=== PATIENT | female | born 1950 | race Caucasian/White ===

== ENCOUNTER 2018-02-27 11:54 | Emergency (ER) | payer MEDICARE, OTHER ==
[2018-02-27 12:18] VITALS: TEMP 98.6
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
--- NOTE | 2018-02-27 13:53 | CT ---
EXAMINATION TYPE: CT brain wo con DATE OF EXAM: 02/27/2018 COMPARISON: 02/20/2011 HISTORY: headache CT DLP: 1048.4 mGycm Automated exposure control for dose reduction was used. TECHNIQUE: CT scan of the head is performed without contrast. FINDINGS: There is no acute intracranial hemorrhage or midline shift identified. There is diffuse v entricular and sulcal prominence consistent with diffuse age-related cerebral atrophy. There our few areas of low-attenuation in the periventricular white matter most consistent with chronic small vess el ischemic change. The globes are intact and the visualized sinuses are clear. 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 No transependymal edema noted. IMPRESSION: 1. No acute intracranial hemorrhage or midline shift. 2. Diffuse age-related cerebral atrophy and few foci of chronic small vessel ischemic change.
[2018-02-27 14:04] LABS: Basophils % (A) 0 %; Eosinophils # (A) 0.1 k/uL (0-0.7); Eosinophils % (A) 2 %; HCT 39.6 % (34.0-46.0); HGB 13.3 gm/dL (11.4-16.0); Lymphocytes # (A) 1.4 k/uL (1.0-4.8); Lymphocytes % (A) 22 %; MCH 32.6 pg (25.0-35.0); MCHC 33.5 g/dL (31.0-37.0); MCV 97.4 fL (80.0-100.0); Mean Platelet Volume 7.9; Monocytes # (A) 0.2 k/uL (0-1.0); Monocytes % (A) 4 %; Neutrophils # (A) 4.7 k/uL (1.3-7.7); Neutrophils % (A) 71 %; Platelet Count 166 k/uL (150-450); RBC 4.06 m/uL (3.80-5.40); RDW 12.7 % (11.5-15.5); WBC 6.5 k/uL (3.8-10.6)
[2018-02-27 14:08] LABS: Appearance,Urine Clear (Clear); Bacteria,Urine Rare /hpf; Bilirubin,Urine Negative (Negative); Blood,Urine Negative (Negative); Color,Urine Light Yellow; Glucose,Urine (UA) Negative (Negative); Hyaline Casts,Urine 11 /lpf (0-2); Ketones,Urine Negative (Negative); Leukocyte Esterase,Urine Trace (Negative); Mucus,Urine Rare /hpf; Nitrite,Urine Negative (Negative); PH, Urine 5.5 (5.0-8.0); Protein,Urine Negative (Negative); RBC,Urine 1 /hpf (0-5); Specific Gravity,Urine 1.006 (1.001-1.035); Squamous Epithelial Cell,Urine 1 /hpf (0-4); Urobilinogen,Urine <2.0 mg/dL (<2.0); WBC,Urine 1 /hpf (0-5)
[2018-02-27 14:12] LABS: Calcium 9.7 mg/dL (8.4-10.2); Magnesium 1.7 mg/dL (1.6-2.3); Total Bilirubin 0.3 mg/dL (0.2-1.3); Total Protein 6.8 g/dL (6.3-8.2)
[2018-02-27 14:26] LABS: Amphetamine Screen,Urine Not Detected (NotDetected); Barbiturate Screen,Urine Detected (NotDetected); Benzodiazepines Screen,Urine Detected (NotDetected); Cocaine Screen,Urine Not Detected (NotDetected); Methadone Screen, Urine Not Detected (NotDetected); Opiate Screen,Urine Not Detected (NotDetected); Oxycodone Screen, Urine Not Detected (NotDetected); Phencyclidine Screen,Urine Not Detected (NotDetected); Tricyclic Antidepressant,Urine Not Detected (NotDetected); Urn Cannabinoid Scrn Not Detected (NotDetected)
[2018-02-27] MEDS: LORazepam 1 MG TAB PO STA ×2 (16:29→18:18)
[2018-02-27] MEDS: ACETAMINOPHEN TAB 500 MG TAB PO STA ×2 (16:29→18:18)
[2018-02-27] MEDS ORDERED: ACETAMINOPHEN IV (For NPO) 1,000 MG in EMPTY BAG 1 BAG IVPB STA (16:59)
[2018-02-27] MEDS ORDERED: ONDANSETRON 4 MG/2 ML VIAL IVP STA (17:00)
[2018-02-27] MEDS ORDERED: LORazepam 2 MG/ML INJ IV STA (17:00)
[2018-02-27 18:16] VITALS: BP 131/79; PULSE 89; RESP 18
== END 2018-02-27 18:10 | disposition home or self-care (01) ==
LOC: EC 11:54
DX: F32.9 Major depressive disorder, single episode, unspecified (principal); R45.850 Homicidal ideations; R51 Headache; J44.9 Chronic obstructive pulmonary disease, unspecified; I10 Essential (primary) hypertension; F41.9 Anxiety disorder, unspecified; F17.200 Nicotine dependence, unspecified, uncomplicated; Z79.82 Long term (current) use of aspirin; Z79.51 Long term (current) use of inhaled steroids; Z79.899 Other long term (current) drug therapy
CPT/HCPCS: 82075; 36415; 93005; 80053; 83735; 85025; 81001; 80306; 70450; 99285; 96365; 96375 ×2; J2060; J2405; J0131

== ENCOUNTER 2018-05-21 14:55 | Emergency (ER) | payer MEDICARE ==
[2018-05-21 15:17] VITALS: BP 128/67; PULSE 77; RESP 18; TEMP 98.5
--- NOTE | 2018-05-21 15:27 | ED ---
Fall HPI - General Chief Complaint: Fall Stated Complaint: Possible broken Rib Time Seen by Provider: 05/21/18 15:21 Source: patient, RN notes reviewed Mode of arrival: ambulatory Limitations: no limitations - History of Present Illness Initial Comments: This a 68-year-old female presents emergency Department chief complaint of right-sided rib pain. Patient states she went to her sister's in [place] a week ago states that she fell when she got there. She states she tripped over a ledge falling onto her right side of her ribs. Patient states she's had pain has been persistent ever since. She denies any shortness breath but states it's painful to deep inspiration. She denies any head injury no loss conscious. Denies any abdominal pain denies any hematuria, melena, hematochezia. Patient is just concerned she may have a broken rib. - Related Data Home Medications Medication Instructions Recorded Confirmed ALPRAZolam [Xanax] 0.5 mg PO BID 02/27/18 02/27/18 Aspirin [Adult Low Dose Aspirin EC] 81 mg PO HS 02/27/18 02/27/18 Budesonide/Formoterol Fumarate 2 puff INHALATION BID 02/27/18 02/27/18 [Symbicort 80-4.5 Mcg Inhaler] Calcium Carbonate/Vitamin D3 1 cap PO DAILY 02/27/18 02/27/18 [Calcium 600-Vit D3 500 Softgel] Carvedilol [Coreg] 3.125 mg PO BID 02/27/18 02/27/18 Cholecalciferol (Vitamin D3) 2,000 unit PO DAILY 02/27/18 02/27/18 [Vitamin D3] Cyanocobalamin (Vitamin B-12) 1,000 mcg PO DAILY 02/27/18 02/27/18 [Vitamin B-12] Escitalopram [Lexapro] 10 mg PO DAILY 02/27/18 02/27/18 Isosorbide Mononitrate [Isosorbide 30 mg PO DAILY 02/27/18 02/27/18 Mononitrate ER] Montelukast [Singulair] 10 mg PO HS 02/27/18 02/27/18 Multivit/Folic Acid/Vit K1 1 tab PO DAILY 02/27/18 02/27/18 [One-A-Day Women's 50 Plus Tab] Pantoprazole Sodium [Protonix] 40 mg PO BID 02/27/18 02/27/18 Primidone [Mysoline] 100 mg PO TID 02/27/18 02/27/18 Rosuvastatin Calcium 10 mg PO HS 02/27/18 02/27/18 Spironolactone 25 mg PO DAILY 02/27/18 02/27/18 Varenicline Tartrate [Chantix 1 mg PO BID 02/27/18 02/27/18 Continuing Pack] Vitamin E (Dl,Tocopheryl Acet) 400 unit PO DAILY 02/27/18 02/27/18 [Vitamin E] amLODIPine BESYLATE/BENAZEPRIL 1 cap PO DAILY 02/27/18 02/27/18 [amLODIPine BESYLATE/BENAZEPRIL 5-40 mg] busPIRone HCL [Buspar] 7.5 mg PO BID 02/27/18 02/27/18 Allergies Allergy/AdvReac Type Severity Reaction Status Date / Time No Known Allergies Allergy Verified 05/21/18 15:17 Review of Systems ROS Statement: Those systems with pertinent positive or pertinent negative responses have been documented in the HPI. ROS Other: All systems not noted in ROS Statement are negative. Past Medical History Past Medical History: COPD, Hypertension History of Any Multi-Drug Resistant Organisms: None Reported Past Surgical History: Cholecystectomy, Hernia Repair, Orthopedic Surgery Past Psychological History: Anxiety Smoking Status: Current every day smoker Past Alcohol Use History: None Reported Past Drug Use History: Prescription Drug Abuse General Exam Limitations: no limitations General appearance: alert, in no apparent distress Head exam: Present: atraumatic, normocephalic, normal inspection Neck exam: Present: normal inspection, full ROM. Absent: tenderness, meningismus, lymphadenopathy Respiratory exam: Present: normal lung sounds bilaterally, chest wall tenderness (Moderate right anterolateral). Absent: respiratory distress, wheezes, rales, rhonchi, stridor Cardiovascular Exam: Present: regular rate, normal rhythm, normal heart sounds. Absent: systolic murmur, diastolic murmur, rubs, gallop, clicks GI/Abdominal exam: Present: soft, normal bowel sounds. Absent: distended, tenderness, guarding, rebound, rigid Back exam: Present: full ROM. Absent: tenderness, CVA tenderness (R), CVA tenderness (L), paraspinal tenderness, vertebral tenderness Neurological exam: Present: alert, oriented X3, CN II-XII intact, reflexes normal. Absent: motor sensory deficit Course Vital Signs 05/21/18 15:14 Temperature 98.5 F Pulse Rate 77 Respiratory 18 Rate Blood Pressure 128/67 O2 Sat by Pulse 98 Oximetry Medical Decision Making - Medical Decision Making 68-year-old female presented emergency department for a trip and fall. X-rays were obtained of her ribs. No acute fracture or pneumothorax noted. Patient likely has a rib contusion. Patient will be discharged return parameters were discussed. Patient abdomen is soft nontender. Disposition Clinical Impression: Fall, Contusion of rib on right side Disposition: HOME SELF-CARE Condition: Stable Instructions (If sedation given, give patient instructions): Rib Contusion (ED) Additional Instructions: Please return to the Emergency Department if symptoms worsen or any other concerns. Is patient prescribed a controlled substance at d/c from ED?: No Referrals: Kimberley Keene DO [Primary Care Provider] - 1-2 days Time of Disposition: 16:01
--- NOTE | 2018-05-21 15:53 | XR ---
EXAMINATION TYPE: XR ribs RT w pa chest xray DATE OF EXAM: 05/21/2018 CLINICAL HISTORY: Fall one week ago with subsequent right-sided chest pain TECHNIQUE: Single frontal view of the chest is obtained. Frontal and oblique views of the right ribs were also obtained. COMPARISON: 02/20/2011 FINDINGS: There is no focal air space opacity, pleural effusion, or pneumothorax seen. The cardiac silhouette size is within normal limits. The osseous structures are intact. There is mild generaliz ed osseous demineralization. No displaced acute right rib fractures or chronic healed fracture deform ities are seen. IMPRESSION: No acute cardiopulmonary process. No acute displaced right rib fracture is evident.
[2018-05-21] MEDS ORDERED: ACET/COD 300 MG/30 MG STARTER PACK 6 TAB BTL PO STA (16:03)
== END 2018-05-21 16:10 | disposition home or self-care (01) ==
LOC: EC 14:55
DX: S20.211A Contusion of right front wall of thorax, initial encounter (principal); J44.9 Chronic obstructive pulmonary disease, unspecified; I10 Essential (primary) hypertension; F41.9 Anxiety disorder, unspecified; F17.200 Nicotine dependence, unspecified, uncomplicated; Z79.82 Long term (current) use of aspirin; Z79.51 Long term (current) use of inhaled steroids; Z79.899 Other long term (current) drug therapy; W01.0XXA Fall on same level from slipping, tripping and stumbling without subsequent striking against object, initial encounter; Y92.008 Other place in unspecified non-institutional (private) residence as the place of occurrence of the external cause
CPT/HCPCS: 99283

== ENCOUNTER → 2020-12-28 | Outpatient (CLI) | payer MEDICARE ==
--- NOTE | 2020-12-30 10:28 | MM ---
Reason for exam: screening (asymptomatic). Last mammogram was performed 2 years ago. History: Patient is postmenopausal. Physical Findings: A clinical breast exam by your physician is recommended on an annual basis and results should be correlated with mammographic findings. MG 3D Screening Mammo W/Cad Bilateral CC and MLO view(s) were taken. Prior study comparison: December 28, 2018, mammogram, performed at [facility]. December 15, 2017, mammogram, performed at [facility]. Finding: There are extensive, linear, diffuse/scattered calcifications in both breasts. Focal asymmetry near skin surface laterally right breast. New finding since December 28, 2018 and December 15, 2017. ASSESSMENT: Incomplete: need additional imaging evaluation, BI-RAD 0 RECOMMENDATION: Special view mammogram of the right breast. If lesion persists on supplemental views, image directed ultrasound is recommended. [facility] will attempt to contact patient to return for supplemental views and ultrasound if indicated.
--- NOTE | 2020-12-30 13:25 | BD ---
EXAMINATION TYPE: Axial Bone Density DATE OF EXAM: 12/28/2020 COMPARISON: NONE CLINICAL HISTORY: Height: 4 FT 9 1/2 IN Weight: 138 FRAX RISK QUESTIONS: Alcohol (3 or more units per day): NO Family History (Parent hip fracture): NO Glucocorticoids (More than 3mos): NO (Ex: prednisone, prednisolone, methylprednisolone, dexamethasone, and hydrocortisone). History of Fracture in Adulthood: NO Secondary Osteoporosis: 1. Type 1 Diabetes: NO 2. Hyperthyroidism: NO 3. Menopause before 45: NO 4. Malnutrition: NO 5. Chronic liver disease: NO Rheumatoid Arthritis: NO Current Tobacco Use: YES RISK FACTORS HISTORY OF: Surgery to Spine/Hip(right/left)/Wrist (right/left): NO Family History of Osteoporosis: NO Active: YES Diet low in dairy products/other sources of calcium: NO Postmenopausal woman: AGE 53 Take estrogen and/or progesterone medications: NO Lost more than 2 inches in height since high school: NO MEDICATIONS: Additional Medications: BLOOD PRESSURE MEDS, CHOLESTEROL MEDS, CYMBA JULIO, HEART MEDS Additional History: COPD EXAM MEASUREMENTS: Bone mineral densitometry was performed using the [employer] System. Bone mineral density as measured about the Lumbar spine is: ----- L1-L4(G/cm2): 1.254 T Score Values are as follows: ----- L2: 0.7 ----- L3: 1.6 ----- L4: 1.4 ----- L1-L4: 0.6 BASELINE Bone mineral density about the R hip (g/cm2): 0.742 Bone mineral density about the L hip (g/cm2): 0.741 T Score values are as follows: -----R Neck: -2.1 -----L Neck: -2.1 -----R Total: -1.2 -----L Total: -1.5 BASELINE IMPRESSION: Osteopenia (T Score between -2.5 and -1). There is slightly increased risk of fracture and the patient may be considered for treatment. Re-Screen 2-5 years. NOTE: T-SCORE=SD OF THE YOUNG ADULT MEAN.
== END | disposition home or self-care (01) ==
LOC: RADBDWWP 15:54
PROVIDERS: ATTEND Internal Medicine
DX: Z12.31 Encounter for screening mammogram for malignant neoplasm of breast (principal); M85.80 Other specified disorders of bone density and structure, unspecified site; E55.9 Vitamin D deficiency, unspecified
CPT/HCPCS: 77063; 77067; 77080

== ENCOUNTER → 2021-01-07 | Outpatient (CLI) | payer MEDICARE ==
--- NOTE | 2021-01-07 12:48 | MM ---
Reason for exam: additional evaluation requested from abnormal screening. Last mammogram was performed less than 1 month ago. History: Patient is postmenopausal. Physical Findings: Nurse did not find any significant physical abnormalities on exam. MG 3D Work Up W/Cad RT Spot compression CC, spot compression MLO, and LM view(s) were taken of the right breast. Prior study comparison: December 28, 2020, bilateral MG 3d screening mammo w/cad. December 28, 2018, mammogram, performed at [facility]. Finding: There is a new 5 mm high density mass located 8 cm from the nipple in the outer quadrant, middle position of the right breast near skin lever in subcutaneous tissue. Focal asymmetry largely disperses on compression. New finding since December 28, 2020 and December 28, 2018. These results were verbally communicated with the patient and result sheet given to the patient on 01/07/21. ASSESSMENT: Incomplete: need additional imaging evaluation, BI-RAD 0 RECOMMENDATION: Ultrasound of the right breast.
--- NOTE | 2021-01-07 12:50 | USB ---
Reason for exam: additional evaluation requested from abnormal screening. History: Patient is postmenopausal. US Breast Workup Limited RT Right limited breast ultrasound including focal area of concern, retroareolar and axilla demonstrates a 0.3 x 0.2 x 0.2cm oval, solid calcification at 9 o'clock, a 0.4 x 0.4 x 0.1cm oval, solid calcification at 10 o'clock, a 1.3 x 0.9 x 0.6cm oval, solid, hyperechoic lipoma at 10 o'clock and duct ectasia at the posterior nipple. These results were verbally communicated with the patient and result sheet given to the patient on 01/07/21. ASSESSMENT: Probably benign, BI-RAD 3 RECOMMENDATION: Ultrasound of the right breast in 3 months.
== END | disposition home or self-care (01) ==
LOC: RADMAMWWP 10:24
PROVIDERS: ATTEND Internal Medicine
DX: R92.8 Other abnormal and inconclusive findings on diagnostic imaging of breast (principal)
CPT/HCPCS: 77065; 76642; G0279; 77061

== ENCOUNTER 2021-09-14 12:28 | Inpatient (IN) | payer BC, MEDICARE ==
[2021-09-14 13:26] LABS: Basophils % (A) 0 %; Eosinophils # (A) 0.1 k/uL (0-0.7); Eosinophils % (A) 2 %; HCT 33.8 % (34.0-46.0); Lymphocytes # (A) 0.6 k/uL (1.0-4.8); Lymphocytes % (A) 11 %; MCH 31.4 pg (25.0-35.0); MCHC 32.7 g/dL (31.0-37.0); Mean Platelet Volume 8.2; Monocytes # (A) 0.3 k/uL (0-1.0); Monocytes % (A) 5 %; Neutrophils # (A) 4.8 k/uL (1.3-7.7); Neutrophils % (A) 81 %; Platelet Count 302 k/uL (150-450); RBC 3.52 m/uL (3.80-5.40); RDW 15.7 % (11.5-15.5); WBC 5.9 k/uL (3.8-10.6)
--- NOTE | 2021-09-14 13:34 | XR ---
EXAMINATION TYPE: XR chest 2V DATE OF EXAM: 09/14/2021 COMPARISON: 05/21/2018 TECHNIQUE: PA and lateral views submitted. HISTORY: Shortness of breath FINDINGS: A diffuse interstitial pattern with bilateral lower lobe consolidation and small effusion greater on the left. Hypertrophic change of the spine. Atherosclerotic change aorta. Diffuse osteopenia. No pneu mothorax. Surgical clips upper abdomen. IMPRESSION: 1. Bilateral lower lobe infiltrate with small effusion correlate for mild CHF otherwise consider pneu monia.
[2021-09-14] MEDS ORDERED: IPRATROPIUM-ALBUTEROL 3 ML NEB INHALATION STA (13:38)
[2021-09-14 13:42] LABS: Albumin 3.3 g/dL (3.5-5.0); Calcium 8.3 mg/dL (8.4-10.2); Magnesium 1.5 mg/dL (1.6-2.3); Potassium 4.5 mmol/L (3.5-5.1); Total Bilirubin 0.3 mg/dL (0.2-1.3); Total Protein 6.4 g/dL (6.3-8.2)
--- NOTE | 2021-09-14 13:42 | ED ---
General Adult HPI - General Chief complaint: Shortness of Breath Stated complaint: LUANNE Time Seen by Provider: 09/14/21 12:29 Source: patient, EMS, RN notes reviewed Mode of arrival: ambulatory Limitations: no limitations - History of Present Illness Initial comments: This a 71-year-old female presents emergency department via EMS chief complaint of shortness of breath. Patient states over the last 3 days she's had increasing dyspnea. Patient does have history of COPD, lung cancer with lobectomy. Patient states that she's been doing well until last few days. She did have lobectomy little over one month ago. Patient denies any reported fever or chills she has a slight cough which is nonproductive. No sick contacts. Patient denies nausea which is resolved no significant headache dizziness or any focal weakness. - Related Data Home Medications Medication Instructions Recorded Confirmed ALPRAZolam [Xanax] 0.5 mg PO TID PRN 02/27/18 05/21/18 Budesonide/Formoterol Fumarate 2 puff INHALATION RT-BID 02/27/18 05/21/18 [Symbicort 80-4.5 Mcg Inhaler] Calcium Carbonate/Vitamin D3 1 cap PO DAILY 02/27/18 05/21/18 [Calcium 600-Vit D3 500 Softgel] Cholecalciferol (Vitamin D3) 2,000 unit PO DAILY 02/27/18 05/21/18 [Vitamin D3] Escitalopram [Lexapro] 10 mg PO DAILY 02/27/18 05/21/18 Isosorbide Mononitrate [Isosorbide 30 mg PO DAILY 02/27/18 05/21/18 Mononitrate ER] Montelukast [Singulair] 10 mg PO HS 02/27/18 05/21/18 Multivit/Folic Acid/Vit K1 1 tab PO DAILY 02/27/18 05/21/18 [One-A-Day Women's 50 Plus Tab] Pantoprazole Sodium [Protonix] 40 mg PO BID 02/27/18 05/21/18 Primidone [Mysoline] 100 mg PO TID 02/27/18 05/21/18 Rosuvastatin Calcium 10 mg PO HS 02/27/18 05/21/18 Spironolactone 25 mg PO DAILY 02/27/18 05/21/18 Vitamin E (Dl,Tocopheryl Acet) 400 unit PO DAILY 02/27/18 05/21/18 [Vitamin E] amLODIPine BESYLATE/BENAZEPRIL 1 cap PO DAILY 02/27/18 05/21/18 [amLODIPine BESYLATE/BENAZEPRIL 5-40 mg] Acetaminophen Tab [Tylenol Tab] 650 mg PO Q6H PRN 05/21/18 05/21/18 Albuterol Inhaler [Ventolin Hfa 1 - 2 puff INHALATION RT-Q6H PRN 05/21/18 05/21/18 Inhaler] Aspirin 325 mg PO DAILY 05/21/18 05/21/18 Cider Vinegar [Apple Cider Vinegar] 300 mg PO DAILY 05/21/18 05/21/18 DULoxetine HCL [Cymbalta] 30 mg PO BID 05/21/18 05/21/18 Fluticasone Nasal [place] [Flonase 2 spray EA NOSTRIL DAILY 05/21/18 05/21/18 Nasal [place]igg[place]] Nitroglycerin Sl Tabs [Nitrostat] 0.4 mg SUBLINGUAL Q5M PRN 05/21/18 05/21/18 [place]-3 Fatty Acids [[place]-3] 1,000 mg PO DAILY 05/21/18 05/21/18 Tiotropium 18 Mcg/Puff [Spiriva] 1 cap INHALATION RT-DAILY 05/21/18 05/21/18 Vitamin B Complex 1 cap PO DAILY 05/21/18 05/21/18 buPROPion XL [Wellbutrin Xl] 150 mg PO DAILY 05/21/18 05/21/18 carvediloL [Coreg] 6.25 mg PO BID 05/21/18 05/21/18 Allergies Allergy/AdvReac Type Severity Reaction Status Date / Time Sulfa (Sulfonamide Allergy Unknown Verified 09/14/21 12:36 Antibiotics) Review of Systems ROS Statement: Those systems with pertinent positive or pertinent negative responses have been documented in the HPI. ROS Other: All systems not noted in ROS Statement are negative. Past Medical History Past Medical History: COPD, Hypertension History of Any Multi-Drug Resistant Organisms: None Reported Past Surgical History: Cholecystectomy, Hernia Repair, Orthopedic Surgery Past Psychological History: Anxiety Past Alcohol Use History: None Reported Past Drug Use History: Prescription Drug Abuse General Exam Limitations: no limitations General appearance: alert, in no apparent distress Head exam: Present: atraumatic, normocephalic, normal inspection Eye exam: Present: normal appearance, PERRL, EOMI. Absent: scleral icterus, conjunctival injection, periorbital swelling ENT exam: Present: normal exam, normal oropharynx, mucous membranes moist Neck exam: Present: normal inspection, full ROM. Absent: tenderness, meningismus, lymphadenopathy Respiratory exam: Present: wheezes, decreased breath sounds. Absent: normal lung sounds bilaterally, respiratory distress, rales, rhonchi, stridor Cardiovascular Exam: Present: regular rate, normal rhythm, normal heart sounds. Absent: systolic murmur, diastolic murmur, rubs, gallop, clicks GI/Abdominal exam: Present: soft, normal bowel sounds. Absent: distended, tenderness, guarding, rebound, rigid Neurological exam: Present: alert Skin exam: Present: warm, dry, intact, normal color. Absent: rash Course Vital Signs 09/14/21 09/14/21 09/14/21 12:32 14:12 14:21 Temperature 97.8 F Pulse Rate 65 64 64 Respiratory 18 Rate Blood Pressure 143/72 O2 Sat by Pulse 90 L Oximetry Medical Decision Making - Medical Decision Making 71-year-old female presented for dyspnea. Patient has extensive lung history. Patient's found to have bilateral pneumonia patient was started on IV advised to consult to pulmonary. - Lab Data Result diagrams: 09/14/21 13:13 09/14/21 13:13 Lab Results 09/14/21 09/14/21 09/14/21 Range/Units 13:13 13:13 13:13 WBC 5.9 (3.8-10.6) k/uL RBC 3.52 L (3.80-5.40) m/uL Hgb 11.0 L (11.4-16.0) gm/dL Hct 33.8 L (34.0-46.0) % MCV 96.0 (80.0-100.0) fL MCH 31.4 (25.0-35.0) pg MCHC 32.7 (31.0-37.0) g/dL RDW 15.7 H (11.5-15.5) % Plt Count 302 (150-450) k/uL MPV 8.2 Neutrophils % 81 % Lymphocytes % 11 % Monocytes % 5 % Eosinophils % 2 % Basophils % 0 % Neutrophils # 4.8 (1.3-7.7) k/uL Lymphocytes # 0.6 L (1.0-4.8) k/uL Monocytes # 0.3 (0-1.0) k/uL Eosinophils # 0.1 (0-0.7) k/uL Basophils # 0.0 (0-0.2) k/uL PT 10.4 (9.0-12.0) sec INR 0.9 (<1.2) APTT 24.0 (22.0-30.0) sec Sodium 136 L (137-145) mmol/L Potassium 4.5 (3.5-5.1) mmol/L Chloride 103 (98-107) mmol/L Carbon Dioxide 22 (22-30) mmol/L Anion Gap 11 mmol/L BUN 14 (7-17) mg/dL Creatinine 0.97 (0.52-1.04) mg/dL Est GFR (CKD-EPI)AfAm 67 (>60 ml/min/1.73 sqM) Est GFR (CKD-EPI)NonAf 58 (>60 ml/min/1.73 sqM) Glucose 120 H (74-99) mg/dL Plasma Lactic Acid Selvin (0.7-2.0) mmol/L Calcium 8.3 L (8.4-10.2) mg/dL Magnesium 1.5 L (1.6-2.3) mg/dL Total Bilirubin 0.3 (0.2-1.3) mg/dL AST 24 (14-36) U/L ALT 15 (4-34) U/L Alkaline Phosphatase 168 H (38-126) U/L Troponin I (0.000-0.034) ng/mL NT-Pro-B Natriuret Pep pg/mL Total Protein 6.4 (6.3-8.2) g/dL Albumin 3.3 L (3.5-5.0) g/dL 09/14/21 09/14/21 09/14/21 Range/Units 13:13 13:13 13:13 WBC (3.8-10.6) k/uL RBC (3.80-5.40) m/uL Hgb (11.4-16.0) gm/dL Hct (34.0-46.0) % MCV (80.0-100.0) fL MCH (25.0-35.0) pg MCHC (31.0-37.0) g/dL RDW (11.5-15.5) % Plt Count (150-450) k/uL MPV Neutrophils % % Lymphocytes % % Monocytes % % Eosinophils % % Basophils % % Neutrophils # (1.3-7.7) k/uL Lymphocytes # (1.0-4.8) k/uL Monocytes # (0-1.0) k/uL Eosinophils # (0-0.7) k/uL Basophils # (0-0.2) k/uL PT (9.0-12.0) sec INR (<1.2) APTT (22.0-30.0) sec Sodium (137-145) mmol/L Potassium (3.5-5.1) mmol/L Chloride (98-107) mmol/L Carbon Dioxide (22-30) mmol/L Anion Gap mmol/L BUN (7-17) mg/dL Creatinine (0.52-1.04) mg/dL Est GFR (CKD-EPI)AfAm (>60 ml/min/1.73 sqM) Est GFR (CKD-EPI)NonAf (>60 ml/min/1.73 sqM) Glucose (74-99) mg/dL Plasma Lactic Acid Selvin 1.0 (0.7-2.0) mmol/L Calcium (8.4-10.2) mg/dL Magnesium (1.6-2.3) mg/dL Total Bilirubin (0.2-1.3) mg/dL AST (14-36) U/L ALT (4-34) U/L Alkaline Phosphatase (38-126) U/L Troponin I <0.012 (0.000-0.034) ng/mL NT-Pro-B Natriuret Pep 1750 pg/mL Total Protein (6.3-8.2) g/dL Albumin (3.5-5.0) g/dL Disposition Clinical Impression: Bilateral pneumonia, COPD (chronic obstructive pulmonary disease) Disposition: ADMITTED IP TO THIS HOSP Condition: Fair Referrals: Kimberley Keene DO [Primary Care Provider] - 1-2 days Time of Disposition: 14:25
[2021-09-14 13:45] LABS: INR 0.9 (<1.2); Prothrombin Time 10.4 sec (9.0-12.0)
[2021-09-14] MEDS ORDERED: AZITHROMYCIN 500 MG in SODIUM CHLORIDE 0.9% 250 ML IVPB STA (14:16)
[2021-09-14] MEDS ORDERED: ALBUTEROL NEBULIZED 2.5 MG/3 ML INHALATION PRN (14:25)
[2021-09-14] MEDS ORDERED: PNEUMONIA PROTOCOL UTILIZED 1 EACH MISC PO PRN (14:25)
[2021-09-14] MEDS ORDERED: IPRATROPIUM-ALBUTEROL 3 ML NEB INHALATION PRN (14:25)
[2021-09-14] MEDS ORDERED: HYDROcodone/APAP 10-325MG 1 EACH TAB PO PRN (15:28)
[2021-09-14] MEDS ORDERED: ACETAMINOPHEN TAB 325 MG TAB PO PRN (15:32)
[2021-09-14] MEDS: ALPRAZolam 0.5 MG TAB PO PRN (15:58)
[2021-09-14] MEDS: AZITHROMYCIN 500 MG in SODIUM CHLORIDE 0.9% 250 ML IVPB SCH (16:00)
--- NOTE | 2021-09-14 16:27 | P.CNPUL ---
History of Present Illness Consult date: 09/14/21 Requesting physician: Donny Tellez Reason for consult: dyspnea Chief complaint: Shortness of breath History of present illness: 71-year-old female patient with history of advanced COPD on home oxygen, history of lung cancer with recent left lower lobectomy a little over 1 month ago done at [facility] by Dr. Azul, history of hypertension, CAD with previous stenting, anxiety, nicotine dependence, currently in remission, who presented to the emergency department on 09/14/2021 with complaints of progressive dyspnea over the last 3 days. Patient denied any fever or chills, does report a slight cough, nonproductive. Denies any sick contacts. No nausea vomiting or diarrhea. No abdominal pain. Chest x-ray in the emergency department showed bilateral lower lobe infiltrate with small left pleural effusion. According to the patient, left lower lobe lung mass was discovered on routine screening CT scan of the chest done by her PCP and was a little over 5 cm in size. Patient had a thoracotomy with left lower lobectemy on 08/11/2021. Her surgeon told her that her lymph nodes were positive, and patient's cancer diagnosis was stage III at diagnosis. Patient was also seen by Dr. Mcleod in consultation for new diagnosis of lung cancer. Lab work showed a white count of 5.9, hemoglobin of 11.0, coagulation profile was within normal limits, renal profile and electrolytes were unremarkable, lactic acid is 1.0. ProBNP was 1750, troponin was less than 0.012. Patient is resting comfortably on a gurney in emergency department, she is satting 96% on 2 L, she is afebrile. He has been started on empiric antibiotics, breathing treatments, COVID-19 PCR is pending, and of note patient is not vaccinated against COVID-19. No history of known COVID 19 positive contacts, and no previous COVID-19 infection Review of Systems All systems: negative Constitutional: Denies chills, Denies fever Eyes: denies blurred vision, denies pain Ears, nose, mouth and throat: Denies headache, Denies sore throat Cardiovascular: Denies chest pain, Denies shortness of breath Respiratory: Denies cough Gastrointestinal: Denies abdominal pain, Denies diarrhea, Denies nausea, Denies vomiting Genitourinary: Denies dysuria, Denies hematuria Musculoskeletal: Denies myalgias Integumentary: Denies pruritus, Denies rash Neurological: Denies numbness, Denies weakness Psychiatric: Denies anxiety, Denies depression Endocrine: Denies fatigue, Denies weight change Past Medical History Past Medical History: COPD, Hypertension Additional Past Medical History / Comment(s): COPD, on home oxygen, left lower lobectomy on 08/11/2021 for new diagnosis of cancer, stage III at diagnosis, h ypertension, CAD with previous stenting, anxiety, former smoker History of Any Multi-Drug Resistant Organisms: None Reported Past Surgical History: Cholecystectomy, Hernia Repair, Orthopedic Surgery Past Psychological History: Anxiety Past Alcohol Use History: None Reported Past Drug Use History: Prescription Drug Abuse Medications and Allergies Home Medications Medication Instructions Recorded Confirmed Type ALPRAZolam [Xanax] 0.5 mg PO TID PRN 02/27/18 09/14/21 History Budesonide/Formoterol Fumarate 2 puff INHALATION RT-BID 02/27/18 09/14/21 History [Symbicort 80-4.5 Mcg Inhaler] Isosorbide Mononitrate [Isosorbide 30 mg PO DAILY 02/27/18 09/14/21 History Mononitrate ER] Montelukast [Singulair] 10 mg PO BID 02/27/18 09/14/21 History Pantoprazole Sodium [Protonix] 40 mg PO BID 02/27/18 09/14/21 History Primidone [Mysoline] 150 mg PO TID 02/27/18 09/14/21 History Rosuvastatin Calcium 10 mg PO HS 02/27/18 09/14/21 History Spironolactone 25 mg PO DAILY 02/27/18 09/14/21 History DULoxetine HCL [Cymbalta] 30 mg PO BID 05/21/18 09/14/21 History Amiodarone [Cordarone] 400 mg PO DAILY 09/14/21 09/14/21 History Aspirin EC [Ecotrin Low Dose] 81 mg PO DAILY 09/14/21 09/14/21 History Clopidogrel [Plavix] 75 mg PO DAILY 09/14/21 09/14/21 History HYDROcodone/APAP 10-325MG [[place] 1 - 2 tab PO Q4-6H PRN 09/14/21 09/14/21 History 10-325] amLODIPine BESYLATE/BENAZEPRIL 1 cap PO DAILY 09/14/21 09/14/21 History [Lotrel 5-20 mg Capsule] carvediloL [Coreg] 3.125 mg PO BID 09/14/21 09/14/21 History Allergies Allergy/AdvReac Type Severity Reaction Status Date / Time Sulfa (Sulfonamide Allergy Unknown Verified 09/14/21 14:46 Antibiotics) Physical Exam Vitals: Vital Signs Temp Pulse Resp BP Pulse Ox 09/14/21 15:26 68 18 142/82 96 09/14/21 14:21 64 09/14/21 14:12 64 09/14/21 12:32 97.8 F 65 18 143/72 90 L Intake and Output 09/14/21 09/14/21 09/14/21 06:59 14:59 22:59 Other: Weight 61.689 kg GENERAL EXAM: Alert, very pleasant, 71-year-old white female, resting on the gurney in the emergency department on 2 L of oxygen and a pulse ox of 96% comfortable in no apparent distress. HEAD: Normocephalic/atraumatic. EYES: Normal reaction of pupils, equal size. Conjunctiva pink, sclera white. NOSE: Clear with pink turbinates. THROAT: No erythema or exudates. NECK: No masses, no JVD, no thyroid enlargement, no adenopathy. CHEST: No chest wall deformity. Symmetrical expansion. Left lateral chest obl ique thoracotomy incision, clean dry and intact LUNGS: Diminished breath sounds at the left base, coarse crackles at the right base posteriorly CVS: Regular rate and rhythm, normal S1 and S2, no gallops, no murmurs, no rubs ABDOMEN: Soft, nontender. No hepatosplenomegaly, normal bowel sounds, no gu arding or rigidity. EXTREMITIES: No clubbing, no edema, no cyanosis, 2+ pulses and upper and lower e xtremities. MUSCULOSKELETAL: Muscle strength and tone normal. SPINE: No scoliosis or deformity SKIN: No rashes CENTRAL NERVOUS SYSTEM: Alert and oriented -3. No focal deficits, tone is normal in all 4 extremities. PSYCHIATRIC: Alert and oriented -3. Appropriate affect. Intact judgment and insight. Results - Laboratory Findings CBC and BMP: 09/14/21 13:13 09/14/21 13:13 PT/INR, D-dimer PT 10.4 sec (9.0-12.0) 09/14/21 13:13 INR 0.9 (<1.2) 09/14/21 13:13 Abnormal lab findings: Abnormal Labs 09/14/21 09/14/21 13:13 13:13 RBC 3.52 L Hgb 11.0 L Hct 33.8 L RDW 15.7 H Lymphocytes # 0.6 L Sodium 136 L Glucose 120 H Calcium 8.3 L Magnesium 1.5 L Alkaline Phosphatase 168 H Albumin 3.3 L - Diagnostic Findings Chest x-ray: report reviewed, image reviewed Assessment and Plan Plan: Assessment: #1. Acute dyspnea, related to postoperative pleural effusion, possibly acute CHF with unknown EF. Possibility of pneumonia seems to be less likely although not completely excluded #2. Recent thoracotomy with left lower lobectomy on 08/11/2021 at [facility] for a new diagnosis of lung cancer. Lymph nodes were positive, and the diagnosis of lung cancer was stage III at diagnosis. Patient follows with Dr. Nolen from medical oncology #3. History of COPD, advanced, on home oxygen #4. History of smoking, currently in remission #5. History of CAD with previous stenting #6. Hypertension #7. Essential tremors #8. History of anxiety Plan: We'll obtain CTA chest to rule out possibility of pulmonary embolism, and characterize left pleural effusion, and bilateral infiltrates Obtain the pro-calcitonin level Continue with empiric antibiotics for now Continue with nebulized bronchodilators Home medications have been reordered Possibility of underlying pneumonia seems to be less likely Blood cultures and sputum cultures have been ordered COVID testing is ordered and pending We'll consult medical oncology to obtain more information about patient's lung cancer history We may consider left lung thoracentesis after review the CTA chest We'll continue to follow patient's clinical course I have personally seen and examined the patient, performed the documentation and the assessment and plan as written. I have personally seen and examined the patient and reviewed the documentation. I performed a joint evaluation with the nurse practitioner in this evaluation was done more than 30 minutes. I fully agree with the documentation above and the plan of care. Interviewed the patient. Joint evaluation that was done along with a nurse practitioner. Patient has a left lower lobe opacity most likely a combination of effusion/atelectasis. A CAT scan of the chest was done and this was done to further investigate her shortness of breath recurred postop. We'll obtain records from oncology regarding details of her malignancy history. We'll continue to follow. Time with Patient: Greater than 30
[2021-09-14] MEDS: PRIMIDONE 50 MG TAB PO SCH ×2 (17:34→21:52)
[2021-09-14] MEDS: carvediloL 3.125 MG TAB PO SCH (17:34)
--- NOTE | 2021-09-14 17:50 | CT ---
EXAMINATION TYPE: CT chest angio for PE DATE OF EXAM: 09/14/2021 COMPARISON: None HISTORY: Bilateral Pneumonia, COPD CT DLP: 232.4 mGycm Automated exposure control for dose reduction was used. CONTRAST: Performed with IV Contrast, patient injected with 57 mL of Isovue 370. Images obtained from the thoracic inlet through the diaphragm with the IV contrast. There are Three-D postprocessed images. FINDINGS: There is diffuse pulmonary emphysema. There is coarse predominantly interstitial infiltrate in the pe riphery of both lungs. There is left pleural effusion. There is some mild atelectasis left lung base. Heart size is normal. No pericardial effusion. There is 2 cm pretracheal lymph node. There are other smaller pretracheal lymph nodes measuring 1 cm. There is a 13 mm anterior mediastinal lymph node. Thoracic aorta is intact. No aneurysm or dissection. There is normal contrast opacification of the pu lmonary arteries. No filling defect. There is large central pulmonary arteries consistent with pulmon imani hypertension. The thoracic spine is intact. No compression fracture. IMPRESSION: No evidence of pulmonary embolism. Emphysema and pulmonary interstitial infiltrates likely related to pulmonary fibrosis. Left pleural e ffusion. Mediastinal adenopathy is likely inflammatory. No suspicious pulmonary mass. Evidence of pul monary hypertension.
[2021-09-14] MEDS: SYMBICORT 80-4.5 MCG INHALER INHALATION SCH (20:13)
[2021-09-14] MEDS: ATORVASTATIN 20 MG TAB PO SCH (21:52)
[2021-09-14] MEDS: DULoxetine HCL 30 MG CAPSULE.DR PO SCH (21:52)
[2021-09-14] MEDS: PANTOPRAZOLE 40 MG TABLET PO SCH (21:52)
[2021-09-14] MEDS: MONTELUKAST 10 MG TAB PO SCH (21:52)
[2021-09-15] MEDS: ALPRAZolam 0.5 MG TAB PO PRN (01:32)
--- NOTE | 2021-09-15 07:00 | HP ---
HISTORY AND PHYSICAL HISTORY OF PRESENT ILLNESS: 71-year-old female with recent lobectomy for lung cancer, advanced COPD, pulmonary fibrosis, history of hypertension, coronary artery disease with stents nicotine addiction, came in with progressive dyspnea over the last 3 days, fever and chills, nonproductive cough. Chest x-ray showed a bilateral infiltrate, cancer stage III, diagnosed lymph nodes are positive. Dr. Nolen also on consult for lung cancer in the past. Came in with procalcitonin elevated. BNP of 1750, lactic acid 1.0. COVID 19 is negative. REVIEW OF SYMPTOMS: 14 point review of systems otherwise negative. PAST MEDICAL HISTORY: COPD, hypertension, stage III cancer, hypertensive coronary artery disease, anxiety, nicotine addiction. PAST SURGICAL HISTORY: Cholecystectomy, hernia repair, orthopedic surgery. MEDICATIONS: See list. ALLERGIES: SULFA. PHYSICAL EXAMINATION: Temperature 97.8, pulse 68, respiratory rate 18- 20, blood pressure 140s over 60s to 70s. O2 90 to 96. White female giving appropriate answers, on 2 to 3 L oxygen, saturating mid 90s. Head normocephalic, atraumatic. Pupils equal, round, reactive. Psych: Fair mood and affect. Neurologic: Alert and oriented times three. Lungs: Scattered rhonchi and wheeze times four. Abdomen is soft, nontender. Musculoskeletal is normal tone. White count 5.9, hemoglobin 11. ASSESSMENT: 1. Acute dyspnea and postoperative pleural effusion. 2. Possible acute congestive heart failure. 3. Possible bilateral pneumonia. 4. Status post lobectomy for lung cancer, lymph nodes positive. 5. Chronic obstructive pulmonary disease. 6. Nicotine addiction. 7. Coronary artery disease. 8. Hypertension. 9. Essential tremors. 10.Anxiety. 11.Procalcitonin is elevated. 12.Continue on antibiotics. 13.Wait for Pulmonary consult. 14.Prognosis guarded. 15.Home medications are reordered. MMODL / IJN: [id number] /
--- NOTE | 2021-09-15 08:07 | XR ---
EXAMINATION TYPE: XR chest 2V DATE OF EXAM: 09/15/2021 COMPARISON: 09/14/2021 TECHNIQUE: PA and lateral views submitted. HISTORY: Shortness of breath FINDINGS: Underlying COPD noted with a coarsened interstitium which may been the basis of chronic interstitial lung disease. There is bilateral lower lobe infiltrate and small left-sided pleural effusion. Left ap ical pleural thickening stable. Atherosclerotic change aorta. Surgical change in the abdomen. Mild de generative change of the spine. IMPRESSION: 1. COPD correlate for chronic interstitial pulmonary fibrosis. Superimposed pneumonitis not excluded. 2. Left lower lobe infiltrate and pleural effusion stable.
[2021-09-15] MEDS: lisinopriL 20 MG TAB PO SCH (08:10)
[2021-09-15] MEDS: ISOSORBIDE MONONITRATE ER 30 MG TAB.ER.24H PO SCH (08:10)
[2021-09-15] MEDS: carvediloL 3.125 MG TAB PO SCH ×2 (08:10→16:43)
[2021-09-15] MEDS: DULoxetine HCL 30 MG CAPSULE.DR PO SCH ×2 (08:10→20:18)
[2021-09-15] MEDS: amLODIPine 5 MG TAB PO SCH (08:10)
[2021-09-15] MEDS: PRIMIDONE 50 MG TAB PO SCH ×3 (08:10→20:18)
[2021-09-15] MEDS: SPIRONOLACTONE 25 MG TAB PO SCH (08:10)
[2021-09-15] MEDS: PANTOPRAZOLE 40 MG TABLET PO SCH ×2 (08:10→20:18)
[2021-09-15] MEDS: MONTELUKAST 10 MG TAB PO SCH ×2 (08:10→20:17)
[2021-09-15] MEDS: ASPIRIN 81 MG PO SCH (08:11)
[2021-09-15] MEDS: AMIODARONE 200 MG TAB PO SCH (08:11)
[2021-09-15] MEDS: CLOPIDOGREL 75 MG TAB PO SCH (08:11)
[2021-09-15] MEDS: methylPREDNISolone SOD SUCCI 125 MG/2 ML VIAL IV SCH ×2 (08:16→21:27)
[2021-09-15] MEDS: SYMBICORT 80-4.5 MCG INHALER INHALATION SCH (08:37)
[2021-09-15] MEDS ORDERED: NON FORMULARY DRUG (Amlodipine Besylate/Benazepril [Lotrel 5-20 Mg Capsule] 1 EACH Capsule PO SCH (09:00)
[2021-09-15] MEDS: AZITHROMYCIN 500 MG in SODIUM CHLORIDE 0.9% 250 ML IVPB SCH (09:31)
--- NOTE | 2021-09-15 10:15 | P.CRDCN ---
History of Present Illness History of present illness: HISTORY OF PRESENTING ILLNESS This is a pleasant 71-year-old female past medical history significant for lung cancer status post left lower lobe lobectomy in 08/11/2021 at [facility], paroxysmal atrial fibrillation after surgery started on amiodarone, coronary a rtery disease status post PCI of the LAD prior to surgery in 03/2021, COPD, hypertension, dyslipidemia, former smoker. She follows with Dr. Kathleen. We have been asked to see in consultation for elevated BNP. Patient presented to the ER on 09/14 with complaints of worsening shortness of breath and dyspnea on exertion. She states she was discharged from [facility] after surgery about 1-1.5 weeks ago, she was doing well at home and for the past few days has been having worsening shortness of breath mostly with activity. She states when she is a rest/sitting or lying down she has improvement in her breathing. She states at home she could barely walk to the bathroom without feeling short of breath. She denies any orthopnea, PND, lower extremity edema. She denies any chest pain, palpitations, lightheadedness, dizziness, syncope or near syncope. She denies any fever, cough, chills or night sweats. She denies any history of heart failure or diabetes. She currently is a non-smoker. She states that she underwent cardiac catheterization secondary to her cardiac workup that was abnormal prior to surgery. She underwent PCI with Dr. Kathleen prior to surgery in 03/2021. At that time, she did not have any symptoms of shortness of breath or chest pain prior to her cath. She was started on a miodarone after surgery secondary to atrial fibrillation post operatively. She states when she was told that she was in atrial fibrillation she was asymptomatic. DIAGNOSTICS * EKG revesinus rhythm, heart rate 62, nonspecific STT wave abnormalities, no acute ischemia noted * No telemetry tracings to review * Chest CT reported as No evidence of pulmonary embolism, emphysema with pulmonary interstital infiltrates, left pleural effusion. heart size appears normal. Evidence of pulmonary hypertension * Laboratory reviewedWBC 5.9, hemoglobin 11, platelets 302, sodium 136, potassium 4.5, BUN 14, serum creatinine 0.9, magnesium 1.5, troponin negative, proBNP 1750, Covid negative * Current home cardiac medications inclucarvedilol 25 mg twice a day, spironolactone 25 mg daily, amlodipine/benazepril 520mg daily, rosuvastatin 10 mg nightly, Imdur 30 mg daily, Plavix 75 mg daily, aspirin 81 mg daily, amiodarone 400 mg daily REVIEW OF SYSTEMS At the time of my exam: CONSTITUTIONAL: Denies fever or chills. CARDIOVASCULAR: Denies chest pain, +shortness of breath, +dyspnea with activity, Denies orthopnea, PND or palpitations. RESPIRATORY: Denies cough. GASTROINTESTINAL: Denies abdominal pain, diarrhea, constipation, nausea or vomiting. MUSCULOSKELETAL: Denies myalgias. NEUROLOGIC: Denies numbness, tingling, headacbe or weakness. ENDOCRINE: Denies fatigue, weight change, polydipsia or polyurina. GENITOURINARY: Denies burning, hematuria or urgency with micturation. HEMATOLOGIC: Denies history of anemia or bleeding. PHYSICAL EXAMINATION Blood pressure 154/78, heart rate 60, afebrile, oxygen saturation 98% on 3 L nasal cannula CONSTITUTIONAL: No apparent distress. HEENT: Head is normocephalic. Pupils are equal, round. Sclerae anicteric. Mucous membranes of the mouth are moist. No JVD. No carotid bruit. CHEST EXAMINATION: Lungs are diminished bilateral bases to auscultation. No chest wall tenderness is noted on palpation or with deep breathing. HEART EXAMINATION: Regular rate and rhythm. S1, S2 heard. No murmurs, gallops or rub. ABDOMEN: Soft, nontender. Positive bowel sounds. EXTREMITIES: 2+ peripheral pulses, no lower extremity edema and no calf tenderness. NEUROLOGIC EXAMINATION: Patient is awake, alert and oriented x3. ASSESSMENT Shortness of breath, dyspnea on exertion, could be multifactorial with recent left lower lobectomy. However, patient with recent diagnosis of CAD and stent to the LAD prior to surgery, possible pneumonia however patient without any signs o f infection Elevated BNP- patient does not appear to be in acute heart failure exacerbation on exam Lung cancer Recent left lower lobectomy on 08/11/2021 at [facility] Coronary artery disease with PCI to LAD prior to surgery in 03/2021 Diagnosis of paroxysmal atrial fibrillation post operatively after lobectomy started on amiodarone History of COPD Former tobacco use History of hypertension Dyslipidemia PLAN Obtain 2D echocardiogram and doppler study to assess cardiac structure and function. Start Lasix PO 40mg daily and monitor Monitor patient on telemetry Recommend Lexiscan stress test tomorrow to assess for stress induced cardiac ischemia. If abnormal will consider coronary angiography. Pulmonary following Continue dual antiplatelet therapy with aspirin and Plavix Continue amiodarone at this time Continue home statin, spironolactone, Coreg, imdur, lisinopril Further recommendations based on clinical course Nurse practitioner note has been reviewed by physician. Signing provider agrees with the documented findings, assessment, and plan of care. Past Medical History Past Medical History: COPD, Hypertension Additional Past Medical History / Comment(s): COPD, on home oxygen, left lower lobectomy on 08/11/2021 for new diagnosis of cancer, stage III at diagnosis, hypertension, CAD with previous stenting, anxiety, former smoker History of Any Multi-Drug Resistant Organisms: None Reported Past Surgical History: Cholecystectomy, Hernia Repair, Orthopedic Surgery Additional Past Surgical History / Comment(s): left lower lobectomy 08/11/21 for lung Ca stage III, cardiac stent, screw right ankle Past Anesthesia/Blood Transfusion Reactions: No Reported Reaction Past Psychological History: Anxiety Past Alcohol Use History: None Reported Past Drug Use History: Prescription Drug Abuse - Past Family History Mother Family Medical History: Coronary Artery Disease (CAD) Medications and Allergies Home Medications Medication Instructions Recorded Confirmed Type ALPRAZolam [Xanax] 0.5 mg PO TID PRN 02/27/18 09/14/21 History Budesonide/Formoterol Fumarate 2 puff INHALATION RT-BID 02/27/18 09/14/21 History [Symbicort 80-4.5 Mcg Inhaler] Isosorbide Mononitrate [Isosorbide 30 mg PO DAILY 02/27/18 09/14/21 History Mononitrate ER] Montelukast [Singulair] 10 mg PO BID 02/27/18 09/14/21 History Pantoprazole Sodium [Protonix] 40 mg PO BID 02/27/18 09/14/21 History Primidone [Mysoline] 150 mg PO TID 02/27/18 09/14/21 History Rosuvastatin Calcium 10 mg PO HS 02/27/18 09/14/21 History Spironolactone 25 mg PO DAILY 02/27/18 09/14/21 History DULoxetine HCL [Cymbalta] 30 mg PO BID 05/21/18 09/14/21 History Amiodarone [Cordarone] 400 mg PO DAILY 09/14/21 09/14/21 History Aspirin EC [Ecotrin Low Dose] 81 mg PO DAILY 09/14/21 09/14/21 History Clopidogrel [Plavix] 75 mg PO DAILY 09/14/21 09/14/21 History HYDROcodone/APAP 10-325MG [[place] 1 - 2 tab PO Q4-6H PRN 09/14/21 09/14/21 History 10-325] amLODIPine BESYLATE/BENAZEPRIL 1 cap PO DAILY 09/14/21 09/14/21 History [Lotrel 5-20 mg Capsule] carvediloL [Coreg] 3.125 mg PO BID 09/14/21 09/14/21 History Allergies Allergy/AdvReac Type Severity Reaction Status Date / Time Sulfa (Sulfonamide Allergy Unknown Verified 09/14/21 14:46 Antibiotics) Physical Exam Vitals: Vital Signs Temp Pulse Pulse Resp BP BP Pulse Ox 09/15/21 08:00 98.5 F 68 16 154/78 98 09/15/21 01:46 98.6 F 81 16 138/82 96 09/14/21 21:45 81 16 09/14/21 19:33 97.3 F L 60 16 111/67 99 09/14/21 18:37 98.3 F 70 132/80 97 09/14/21 15:26 68 18 142/82 96 09/14/21 14:21 64 09/14/21 14:12 64 09/14/21 12:32 97.8 F 65 18 143/72 90 L Intake and Output 09/14/21 09/15/21 09/15/21 22:59 06:59 14:59 Intake Total 350 600 Balance 350 600 Intake: Intake, IV Titration 350 Amount Azithromycin 500 mg In 250 Sodium Chloride 0.9% 250 ml @ 250 mls/hr IVPB DAILY [facility] Rx#:[id number] cefTRIAXone 2 gm In 100 Sodium Chloride 0.9% 50 ml @ 100 mls/hr IVPB Q24HR [facility] Rx#:[id number] Oral 600 Other: Voiding Method Toilet Weight 61.689 kg Results 09/15/21 06:49 09/15/21 06:49 Cardiac Enzymes 09/14/21 09/14/21 Range/Units 13:13 13:13 AST 24 (14-36) U/L Troponin I <0.012 (0.000-0.034) ng/mL Coagulation 09/14/21 Range/Units 13:13 PT 10.4 (9.0-12.0) sec APTT 24.0 (22.0-30.0) sec CBC 09/14/21 Range/Units 13:13 WBC 5.9 (3.8-10.6) k/uL RBC 3.52 L (3.80-5.40) m/uL Hgb 11.0 L (11.4-16.0) gm/dL Hct 33.8 L (34.0-46.0) % Plt Count 302 (150-450) k/uL Comprehensive Metabolic Panel 09/14/21 Range/Units 13:13 Sodium 136 L (137-145) mmol/L Potassium 4.5 (3.5-5.1) mmol/L Chloride 103 (98-107) mmol/L Carbon Dioxide 22 (22-30) mmol/L BUN 14 (7-17) mg/dL Creatinine 0.97 (0.52-1.04) mg/dL Glucose 120 H (74-99) mg/dL Calcium 8.3 L (8.4-10.2) mg/dL AST 24 (14-36) U/L ALT 15 (4-34) U/L Alkaline Phosphatase 168 H (38-126) U/L Total Protein 6.4 (6.3-8.2) g/dL Albumin 3.3 L (3.5-5.0) g/dL Current Medications Generic Name Dose Route Start Last Admin Trade Name Freq PRN Reason Stop Dose Admin Acetaminophen 650 mg 09/14/21 15:32 09/14/21 15:58 Acetaminophen Tab 325 Mg Tab PO 650 mg Q4HR PRN Administration Fever and/ or Pain Hydrocodone Bitart/Acetaminophen 1 - 2 each 09/14/21 15:28 Hydrocodone/Apap 10-325mg 1 Each Tab PO Q4H PRN Pain Albuterol Sulfate 2.5 mg 09/14/21 14:25 Albuterol Nebulized 2.5 Mg/3 Ml INHALATION RT-Q2H PRN Shortness Of Breath Or Wheezing Albuterol/Ipratropium 3 ml 09/14/21 14:25 Ipratropium-Albuterol 3 Ml Neb INHALATION RT-Q4H PRN shortness of breath Alprazolam 0.5 mg 09/14/21 15:28 09/15/21 01:32 Alprazolam 0.5 Mg Tab PO 0.5 mg TID PRN Administration Anxiety Aminophylline 100 mg 09/16/21 07:00 Aminophylline 500 Mg/20 Ml Vial IV 09/16/21 12:42 ONCE PRN Patient Response Amiodarone HCl 400 mg 09/15/21 09:00 09/15/21 08:11 Amiodarone 200 Mg Tab PO 400 mg DAILY [facility] Administration Amlodipine Besylate 5 mg 09/15/21 09:00 09/15/21 08:10 Amlodipine 5 Mg Tab PO 5 mg DAILY [facility] Administration Aspirin 81 mg 09/15/21 09:00 09/15/21 08:11 Aspirin 81 Mg PO 81 mg DAILY [facility] Administration Atorvastatin Calcium 20 mg 09/14/21 21:00 09/14/21 21:52 Atorvastatin 20 Mg Tab PO 20 mg HS [facility] Administration Budesonide/Formoterol Fumarate 2 puff 09/14/21 20:00 09/15/21 08:37 Symbicort 80-4.5 Mcg Inhaler INHALATION 2 puff RT-BID [facility] Administration Caffeine Citrate 60 mg 09/16/21 07:00 Caffeine Citrate 60 Mg/3 Ml Vial IV 09/16/21 23:00 ONCE PRN Patient Response Carvedilol 3.125 mg 09/14/21 17:30 09/15/21 08:10 Carvedilol 3.125 Mg Tab PO 3.125 mg BID-W/MEALS [facility] Administration Clopidogrel Bisulfate 75 mg 09/15/21 09:00 09/15/21 08:11 Clopidogrel 75 Mg Tab PO 75 mg DAILY [facility] Administration Duloxetine HCl 30 mg 09/14/21 21:00 09/15/21 08:10 Duloxetine Hcl 30 Mg Capsule.Dr PO 30 mg BID [facility] Administration Ceftriaxone Sodium 2 gm/ 50 mls @ 100 mls/hr 09/15/21 09:00 09/15/21 08:01 Sodium Chloride IVPB 09/18/21 09:29 100 mls/hr Q24HR [facility] Administration Protocol Azithromycin 500 mg/ Sodium 250 mls @ 250 mls/hr 09/15/21 09:00 09/15/21 09:31 Chloride IVPB 09/18/21 09:01 250 mls/hr DAILY [facility] Administration Protocol Isosorbide Mononitrate 30 mg 09/15/21 09:00 09/15/21 08:10 Isosorbide Mononitrate Er 30 Mg Tab.Er.24h PO 30 mg DAILY [facility] Administration Lisinopril 20 mg 09/15/21 09:00 09/15/21 08:10 Lisinopril 20 Mg Tab PO 20 mg DAILY [facility] Administration Methylprednisolone Sodium Succinate 60 mg 09/15/21 09:00 09/15/21 08:16 Methylprednisolone Sod Succi 125 Mg/2 Ml Vial IV 09/15/21 21:01 60 mg Q12HR [facility] Administration Miscellaneous Information 1 each 09/14/21 14:25 Pneumonia Protocol Utilized 1 Each Misc PO ONCE PRN Per Protocol Montelukast Sodium 10 mg 09/14/21 21:00 09/15/21 08:10 Montelukast 10 Mg Tab PO 10 mg BID [facility] Administration Pantoprazole Sodium 40 mg 09/14/21 21:00 09/15/21 08:10 Pantoprazole 40 Mg Tablet PO 40 mg BID [facility] Administration Primidone 150 mg 09/14/21 16:00 09/15/21 08:10 Primidone 50 Mg Tab PO 150 mg TID [facility] Administration Regadenoson 0.4 mg 09/16/21 07:00 Regadenoson 0.4 Mg/5 Ml Syringe IV ONCE PRN Per Protocol Spironolactone 25 mg 09/15/21 09:00 09/15/21 08:10 Spironolactone 25 Mg Tab PO 25 mg DAILY [facility] Administration Intake and Output 09/14/21 09/15/21 09/15/21 22:59 06:59 14:59 Intake Total 350 600 Balance 350 600 Intake: Intake, IV Titration 350 Amount Azithromycin 500 mg In 250 Sodium Chloride 0.9% 250 ml @ 250 mls/hr IVPB DAILY [facility] Rx#:[id number] cefTRIAXone 2 gm In 100 Sodium Chloride 0.9% 50 ml @ 100 mls/hr IVPB Q24HR [facility] Rx#:[id number] Oral 600 Other: Voiding Method Toilet Weight 61.689 kg 09/14/21 13:13 09/14/21 13:13
[2021-09-15 10:23] LABS: Basophils # (A) 0.03 X 10*3/uL (0.00-0.10); Basophils % (A) 0.6 %; Eosinophils # (A) 0.23 X 10*3/uL (0.04-0.35); Eosinophils % (A) 4.3 %; HCT 32.9 % (37.2-46.3); HGB 10.2 g/dL (12.0-15.0); Immature Grans, Automated 0.6 %; Lymphocytes # (A) 1.06 X 10*3/uL (0.90-5.00); MCH 30.2 pg (27.0-32.0); MCV 97.3 fL (80.0-97.0); Mean Platelet Volume 10.6 fL (9.5-12.2); Monocytes # (A) 0.64 X 10*3/uL (0.20-1.00); Monocytes % (A) 12.1 %; NRBC Per 100 WBC 0 /100 WBCS (0.0-0.0); Neutrophils # (A) 3.32 X 10*3/uL (1.80-7.70); Neutrophils % (A) 62.4 %; Platelet Count 280 X 10*3/uL (140-440); RBC 3.38 X 10*6/uL (4.10-5.20); RDW 16.2 % (11.5-14.5); WBC 5.31 X 10*3/uL (4.50-10.00)
[2021-09-15 10:41] LABS: African American GFR (CKD) 57.7 (60.0-200.0); Albumin 3.2 g/dL (3.8-4.9); Albumin/Globulin Ratio 1.1 (1.60-3.17); Anion Gap 10.4 mmol/L (10.00-18.00); BUN/Creat Ratio 10.91 Ratio (12.00-20.00); Calcium 8.6 mg/dL (8.7-10.3); Carbon Dioxide 24.6 mmol/L (20.0-27.5); Globulin 2.9 g/dL (1.6-3.3); Non-African American GFR(CKD) 49.8 (60.0-200.0); Potassium 3.7 mmol/L (3.5-5.5); Total Bilirubin 0.2 mg/dL (0.30-1.20); Total Protein 6.1 g/dL (6.2-8.2)
--- NOTE | 2021-09-15 11:07 | CA ---
Transthoracic Echo Report Name: Cookie Garcia Age: 71 Gender: F : 1950 Exam Date: 09/15/2021 08:23 Exam Location: [facility] Ht (in): 60 Wt (lb): 136 Ordering Physician: Marimar Reid Attending/Referring Phys: Feeder Loader Anitra Bang RDCS Procedure CPT: Indications: shortness of breath, LV function Cardiac Hx: Technical Quality: Fair Contrast 1: Total Dose (mL): Contrast 2: Total Dose (mL): MEASUREMENTS (Male / Female) Normal Values DOPPLER MV Area PHT 1.8 cm??? Mitral E Point Velocity 58.9 cm/s Mitral A Point Velocity 123.0 cm/s Mitral E to A Ratio 0.5 MV Deceleration Time 415.9 ms FINDINGS Left Ventricle Normal left ventricular size, wall thickness, systolic function with no obvious regional wall motion abnormalities. Normal left ventricular ejection fraction 60%. Right Ventricle The right ventricle is normal in size and function. Right Atrium The right atrium is normal in size. Left Atrium The left atrium is normal in size. Mitral Valve Structurally normal mitral valve without significant stenosis or prolapse. Mild to moderate mitral annular calcification. There is mild mitral regurgitation. Aortic Valve Structurally normal aortic valve without significant sclerosis or stenosis. There is mild aortic regurgitation. Tricuspid Valve Structurally normal tricuspid valve without significant stenosis. Pulmonary artery systolic pressure is normal. Pulmonic Valve Structurally normal pulmonic valve without significant stenosis. There is no pulmonic regurgitation. Pericardium Normal pericardium without effusion. Aorta Normal aortic root dimension. CONCLUSIONS Normal left ventricular ejection fraction 60% Mild mitral regurgitation Mild aortic regurgitation No pericardial effusion Previewed by: Dr. Mannie Barros DO (Electronically Signed) Final Date: 15 September 2021 11:06
[2021-09-15] MEDS: FUROSEMIDE 40 MG TAB PO SCH (11:38)
--- NOTE | 2021-09-15 13:10 | P.PN ---
Subjective Progress Note Date: 09/15/21 Principal diagnosis: Shortness of breath 71-year-old female patient with history of advanced COPD on home oxygen, history of lung cancer with recent left lower lobectomy a little over 1 month ago done at [facility] by Dr. Azul, history of hypertension, CAD with previous stenting, anxiety, nicotine dependence, currently in remission, who presented to the emergency department on 09/14/2021 with complaints of progressive dyspnea over the last 3 days. Patient denied any fever or chills, does report a slight cough, nonproductive. Denies any sick contacts. No nausea vomiting or diarrhea. No abdominal pain. Chest x-ray in the emergency department showed bilateral lower lobe infiltrate with small left pleural effusion. According to the patient, left lower lobe lung mass was discovered on routine screening CT scan of the chest done by her PCP and was a little over 5 cm in size. Patient had a thoracotomy with left lower lobectemy on 08/11/2021. Her surgeon told her that her lymph nodes were positive, and patient's cancer diagnosis was stage III at diagnosis. Patient was also seen by Dr. Mcleod in consultation for new diagnosis of lung cancer. Lab work showed a white count of 5.9, hemoglobin of 11.0, coagulation profile was within normal limits, renal profile and electrolytes were unremarkable, lactic acid is 1.0. ProBNP was 1750, troponin was less than 0.012. Patient is resting comfortably on a gurney in emergency department, she is satting 96% on 2 L, she is afebrile. He has been started on empiric antibiotics, breathing treatments, COVID-19 PCR is pending, and of note patient is not vaccinated against COVID-19. No history of known COVID 19 positive contacts, and no previous COVID-19 infection On 09/15/2021 patient seen in follow-up on medical surgical floor. She is awake and alert, in no acute distress. She has dyspnea on exertion, but appears to be in no acute distress at rest, she is on 3 L of oxygen pulse ox is 98%, she's be en afebrile while in the hospital, she remains on empiric antibiotics with azithromycin and Rocephin. CTA chest has been completed showing no evidence of pulmonary embolism, emphysema and pulmonary interstitial infiltrates, left pleural effusion, mediastinal adenopathy, no suspicious pulmonary mass, and evidence of pulmonary hypertension. Echocardiogram has been completed showing normal EF of 60%, mild MR, mild aortic regurg, no pericardial effusion. today's labs have been reviewed, white blood cell count remains within normal limits at 5.31, hemoglobin today is 10.2, electrolytes and renal profile are unremarkable, pro-calcitonin level came back non-elevated at 0.12, COVID-19 PCR was negative. Cardiology is on the case, and patient is scheduled to undergo a stress test today. Objective - Vital Signs Vital signs: Vital Signs Temp 98.5 F 09/15/21 08:00 Pulse 68 09/15/21 08:00 Resp 16 09/15/21 08:00 BP 154/78 09/15/21 08:00 Pulse Ox 98 09/15/21 08:00 FiO2 Intake & Output 09/14/21 09/15/21 09/15/21 18:59 06:59 18:59 Intake Total 350 600 300 Balance 350 600 300 Weight 61.689 kg Intake: Intake, IV Titration 350 300 Amount Azithromycin 500 mg In 250 250 Sodium Chloride 0.9% 250 ml @ 250 mls/hr IVPB DAILY [facility] Rx#:[id number] cefTRIAXone 2 gm In 100 50 Sodium Chloride 0.9% 50 ml @ 100 mls/hr IVPB Q24HR [facility] Rx#:[id number] Oral 600 Other: Voiding Method Toilet - Exam GENERAL EXAM: Alert, very pleasant, 71-year-old white female, resting on the gurney in the emergency department on 3 L of oxygen and a pulse ox of 96% comfortable in no apparent distress. HEAD: Normocephalic/atraumatic. EYES: Normal reaction of pupils, equal size. Conjunctiva pink, sclera white. NOSE: Clear with pink turbinates. THROAT: No erythema or exudates. NECK: No masses, no JVD, no thyroid enlargement, no adenopathy. CHEST: No chest wall deformity. Symmetrical expansion. Left lateral chest oblique thoracotomy incision, clean dry and intact LUNGS: Diminished breath sounds at the left base, coarse crackles at the right base posteriorly CVS: Regular rate and rhythm, normal S1 and S2, no gallops, no murmurs, no rubs ABDOMEN: Soft, nontender. No hepatosplenomegaly, normal bowel sounds, no guarding or rigidity. EXTREMITIES: No clubbing, no edema, no cyanosis, 2+ pulses and upper and lower extremities. MUSCULOSKELETAL: Muscle strength and tone normal. SPINE: No scoliosis or deformity SKIN: No rashes CENTRAL NERVOUS SYSTEM: Alert and oriented -3. No focal deficits, tone is normal in all 4 extremities. PSYCHIATRIC: Alert and oriented -3. Appropriate affect. Intact judgment and insight. - Labs CBC & Chem 7: 09/15/21 06:49 09/15/21 06:49 Labs: Abnormal Lab Results - Last 24 Hours (Table) 09/14/21 09/14/21 09/14/21 Range/Units 13:13 13:13 13:13 RBC 3.52 L (3.80-5.40) m/uL Hgb 11.0 L (11.4-16.0) gm/dL Hct 33.8 L (34.0-46.0) % MCV (80.0-97.0) fL MCHC (32.0-37.0) g/dL RDW 15.7 H (11.5-15.5) % Lymphocytes # 0.6 L (1.0-4.8) k/uL Sodium 136 L (137-145) mmol/L Est GFR (CKD-EPI)AfAm (60.0-200.0) Est GFR (CKD-EPI)NonAf (60.0-200.0) BUN/Creatinine Ratio (12.00-20.00) Ratio Glucose 120 H (74-99) mg/dL Calcium 8.3 L (8.4-10.2) mg/dL Magnesium 1.5 L (1.6-2.3) mg/dL Total Bilirubin (0.30-1.20) mg/dL Alkaline Phosphatase 168 H (38-126) U/L Total Protein (6.2-8.2) g/dL Albumin 3.3 L (3.5-5.0) g/dL Albumin/Globulin Ratio (1.60-3.17) g/dL Procalcitonin 0.12 H (0.02-0.09) ng/mL 09/15/21 09/15/21 Range/Units 06:49 06:49 RBC 3.38 L (3.80-5.40) m/uL Hgb 10.2 L (11.4-16.0) gm/dL Hct 32.9 L (34.0-46.0) % MCV 97.3 H (80.0-97.0) fL MCHC 31.0 L (32.0-37.0) g/dL RDW 16.2 H (11.5-15.5) % Lymphocytes # (1.0-4.8) k/uL Sodium (137-145) mmol/L Est GFR (CKD-EPI)AfAm 57.7 L (60.0-200.0) Est GFR (CKD-EPI)NonAf 49.8 L (60.0-200.0) BUN/Creatinine Ratio 10.91 L (12.00-20.00) Ratio Glucose (74-99) mg/dL Calcium 8.6 L (8.4-10.2) mg/dL Magnesium (1.6-2.3) mg/dL Total Bilirubin 0.20 L (0.30-1.20) mg/dL Alkaline Phosphatase 144 H (38-126) U/L Total Protein 6.1 L (6.2-8.2) g/dL Albumin 3.2 L (3.5-5.0) g/dL Albumin/Globulin Ratio 1.10 L (1.60-3.17) g/dL Procalcitonin (0.02-0.09) ng/mL Assessment and Plan Plan: Assessment: #1. Acute dyspnea, related to postoperative pleural effusion, possibly acute CHF with unknown EF. Possibility of pneumonia seems to be less likely although not completely excluded #2. Acute exacerbation of COPD #3. Recent thoracotomy with left lower lobectomy on 08/11/2021 at [facility] for a new diagnosis of lung cancer. Lymph nodes were positive, and the diagnosis of lung cancer was stage III at diagnosis. Patient follows with Dr. Nolen from medical oncology #4. History of COPD, advanced, on home oxygen #5. History of smoking, currently in remission #6. History of CAD with previous PCI to the LAD in March 2021 #7. Hypertension #8. Essential tremors #9. History of anxiety #10. Paroxysmal atrial fibrillation, on amiodarone but not on any chronic anticoagulation Plan: CTA chest was reviewed No plans for thoracentesis, left-sided pleural effusion quite small We'll continue current medical treatment Continue antibiotics We will add 2 doses of IV Solu-Medrol 60 mg every 12 hours Continue nebulized bronchodilators COVID-19 PCR was negative Echocardiogram and cardiology recommendations were reviewed and appreciated Continue diuretics per cardiology recommendations We'll continue to follow patient's clinical course I have personally seen and examined the patient, performed the documentation and the assessment and plan as written. I have personally seen and examined the patient and reviewed the documentation. I performed a joint evaluation with the nurse practitioner in this evaluation was done more than 20 minutes. I fully agree with the documentation above and the plan of care. I elected discussion with the patient. I reviewed the CAT scan of the chest. The patient has some small left-sided pleural effusion which is somewhat loculated. The patient had significant amount of emphysema and COPD changes throughout the lung ramos bilaterally. No clear indication for pneumonia. She is already feeling better. We'll continue the bronchodilators. We'll add steroids. Continue antibiotics on the 24-48 hours. May need home O2. No need for intervention at this point in time regarding the left side pleural effusion. May need to be drained showed the amount of fluid increase in size and the patient is more symptomatically. Time with Patient: Less than 30
--- NOTE | 2021-09-15 13:42 | P.CONS ---
History of Present Illness - Reason for Consult Consult date: 09/15/21 Lung Cancer Requesting physician: Ludmila Riggins - History of Present Illness This is a very nice lady who presented with abnormal routine CXR done in February/2021 revealing a lesion in LLL of lung,she did have a CT scan of chest on 04/05/2021 showed 3.1x3.1 cm in LLL. On 04/08/2021,bronchoscopic biopsy was not diagnotic. She had to undergo cardiac clearance,required stent placed which delayed her surgery. Brain MRI on 04/24/2021 was negative for metastatic disease. She did have a PET scan on 07/19/2021 revealed suspicious uptake in 4.4x4.5cm LLL lung mass,otherwise negative,small 2 mm non FDG avid right lung nodule. 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 She was seen for initial consultation with Dr. Nolen in the Office on August 25: at that time adjuvant treatment options were discussed: discussion with the patient,her son and her ex . We discussed her diagnosis,prognosis,her risk of recurrence given her pathologic stage and the benefit from adjuvant therapy. Given her histology,a combination of platium based,like hughes/gemzar would be reasonable,however,she may not be a perfect candidate for cisplatin given her cardiac risk and PVD,alternatively,carboplatin/gemzar for 4 cycles is very reasonable. Also NGS and PPDL-1was performed and PDL1 5%, unfortunetley no other actionable mutations identified. Plan since positive was adjuvant immunotherapy would be considered after completing chemotherapy At this time,she has not made enough recovery from surgery,I will re-evaluate her in 3-4 weeks,if her PS improve,may proceed with adjuvant therapy at that time. Her next appointment is scheduled at end of the month to further discuss with Dr. Nolen treatment options. Appears she has been admitted for increased shortness of breath, no evidence of progression or PE on CTA. Pulm is following Review of Systems All systems: negative Constitutional: Reports as per HPI Past Medical History Past Medical History: COPD, Hypertension Additional Past Medical History / Comment(s): COPD, on home oxygen, left lower lobectomy on 08/11/2021 for new diagnosis of cancer, stage III at diagnosis, hypertension, CAD with previous stenting, anxiety, former smoker History of Any Multi-Drug Resistant Organisms: None Reported Past Surgical History: Cholecystectomy, Hernia Repair, Orthopedic Surgery Additional Past Surgical History / Comment(s): left lower lobectomy 08/11/21 for lung Ca stage III, cardiac stent, screw right ankle Past Anesthesia/Blood Transfusion Reactions: No Reported Reaction Past Psychological History: Anxiety Past Alcohol Use History: None Reported Past Drug Use History: Prescription Drug Abuse - Past Family History Mother Family Medical History: Coronary Artery Disease (CAD) Medications and Allergies Home Medications Medication Instructions Recorded Confirmed Type ALPRAZolam [Xanax] 0.5 mg PO TID PRN 02/27/18 09/14/21 History Budesonide/Formoterol Fumarate 2 puff INHALATION RT-BID 02/27/18 09/14/21 History [Symbicort 80-4.5 Mcg Inhaler] Isosorbide Mononitrate [Isosorbide 30 mg PO DAILY 02/27/18 09/14/21 History Mononitrate ER] Montelukast [Singulair] 10 mg PO BID 02/27/18 09/14/21 History Pantoprazole Sodium [Protonix] 40 mg PO BID 02/27/18 09/14/21 History Primidone [Mysoline] 150 mg PO TID 02/27/18 09/14/21 History Rosuvastatin Calcium 10 mg PO HS 02/27/18 09/14/21 History Spironolactone 25 mg PO DAILY 02/27/18 09/14/21 History DULoxetine HCL [Cymbalta] 30 mg PO BID 05/21/18 09/14/21 History Amiodarone [Cordarone] 400 mg PO DAILY 09/14/21 09/14/21 History Aspirin EC [Ecotrin Low Dose] 81 mg PO DAILY 09/14/21 09/14/21 History Clopidogrel [Plavix] 75 mg PO DAILY 09/14/21 09/14/21 History HYDROcodone/APAP 10-325MG [[place] 1 - 2 tab PO Q4-6H PRN 09/14/21 09/14/21 History 10-325] amLODIPine BESYLATE/BENAZEPRIL 1 cap PO DAILY 09/14/21 09/14/21 History [Lotrel 5-20 mg Capsule] carvediloL [Coreg] 3.125 mg PO BID 09/14/21 09/14/21 History Allergies Allergy/AdvReac Type Severity Reaction Status Date / Time Sulfa (Sulfonamide Allergy Unknown Verified 09/14/21 14:46 Antibiotics) Physical Exam Vitals: Vital Signs Temp Pulse Pulse Resp BP BP Pulse Ox 09/15/21 08:00 98.5 F 68 16 154/78 98 09/15/21 01:46 98.6 F 81 16 138/82 96 09/14/21 21:45 81 16 09/14/21 19:33 97.3 F L 60 16 111/67 99 09/14/21 18:37 98.3 F 70 132/80 97 09/14/21 15:26 68 18 142/82 96 09/14/21 14:21 64 09/14/21 14:12 64 Intake and Output 09/14/21 09/15/21 09/15/21 22:59 06:59 14:59 Intake Total 350 600 300 Balance 350 600 300 Intake: Intake, IV Titration 350 300 Amount Azithromycin 500 mg In 250 250 Sodium Chloride 0.9% 250 ml @ 250 mls/hr IVPB DAILY [facility] Rx#:[id number] cefTRIAXone 2 gm In 100 50 Sodium Chloride 0.9% 50 ml @ 100 mls/hr IVPB Q24HR [facility] Rx#:[id number] Oral 600 Other: Voiding Method Toilet Weight 61.689 kg - Constitutional General appearance: cooperative, no acute distress - EENT Eyes: EOMI, poor dentition ENT: hard of hearing, NA/AT - Respiratory Respiratory: bilateral: diminished - Cardiovascular Rhythm: regularly irregular - Gastrointestinal General gastrointestinal: soft - Integumentary Integumentary: pale - Musculoskeletal Musculoskeletal: generalized weakness - Psychiatric Psychiatric: A&O x's 3 Results CBC & Chem 7: 09/15/21 06:49 09/15/21 06:49 Labs: Abnormal Lab Results - Last 24 Hours (Table) 09/14/21 09/14/21 09/15/21 Range/Units 13:13 13:13 06:49 RBC 3.38 L (4.10-5.20) X 10*6/uL Hgb 10.2 L (12.0-15.0) g/dL Hct 32.9 L (37.2-46.3) % MCV 97.3 H (80.0-97.0) fL MCHC 31.0 L (32.0-37.0) g/dL RDW 16.2 H (11.5-14.5) % Sodium 136 L (137-145) mmol/L Est GFR (CKD-EPI)AfAm (60.0-200.0) Est GFR (CKD-EPI)NonAf (60.0-200.0) BUN/Creatinine Ratio (12.00-20.00) Ratio Glucose 120 H (74-99) mg/dL Calcium 8.3 L (8.4-10.2) mg/dL Magnesium 1.5 L (1.6-2.3) mg/dL Total Bilirubin (0.30-1.20) mg/dL Alkaline Phosphatase 168 H (38-126) U/L Total Protein (6.2-8.2) g/dL Albumin 3.3 L (3.5-5.0) g/dL Albumin/Globulin Ratio (1.60-3.17) g/dL Procalcitonin 0.12 H (0.02-0.09) ng/mL 09/15/21 Range/Units 06:49 RBC (4.10-5.20) X 10*6/uL Hgb (12.0-15.0) g/dL Hct (37.2-46.3) % MCV (80.0-97.0) fL MCHC (32.0-37.0) g/dL RDW (11.5-14.5) % Sodium (137-145) mmol/L Est GFR (CKD-EPI)AfAm 57.7 L (60.0-200.0) Est GFR (CKD-EPI)NonAf 49.8 L (60.0-200.0) BUN/Creatinine Ratio 10.91 L (12.00-20.00) Ratio Glucose (74-99) mg/dL Calcium 8.6 L (8.4-10.2) mg/dL Magnesium (1.6-2.3) mg/dL Total Bilirubin 0.20 L (0.30-1.20) mg/dL Alkaline Phosphatase 144 H (38-126) U/L Total Protein 6.1 L (6.2-8.2) g/dL Albumin 3.2 L (3.5-5.0) g/dL Albumin/Globulin Ratio 1.10 L (1.60-3.17) g/dL Procalcitonin (0.02-0.09) ng/mL Chest x-ray: report reviewed CT scan - chest: report reviewed Assessment and Plan (1) Non-small cell lung cancer Narrative/Plan: Status post lobectomy COntinues to recover from surgery, plan is to follow-up with dr Nolen as already scheduled next week to review adjuvant treatment options Current Visit: Yes Status: Acute Code(s): C34.90 - MALIGNANT NEOPLASM OF UNSP PART OF UNSP BRONCHUS OR LUNG SNOMED Code(s): 858039189 (2) Bilateral pneumonia Current Visit: Yes Status: Acute Code(s): J18.9 - PNEUMONIA, UNSPECIFIED ORGANISM SNOMED Code(s): 110578077 (3) COPD (chronic obstructive pulmonary disease) Narrative/Plan: Per pulmonary CTA without recurrence or PE Current Visit: Yes Status: Acute Code(s): J44.9 - CHRONIC OBSTRUCTIVE PULMONARY DISEASE, UNSPECIFIED SNOMED Code(s): 25699160 Plan: Dr. Jensen: I have completed the full history and physical nd developed the above impression and plan, agree with dictation, dictated as a scribe.
--- NOTE | 2021-09-15 18:51 | P.PN ---
Progress Note - Text Progress Note Date: 09/15/21 Interval history: I'm rounding for Dr. Joseph Simon September 15: Laying in bed. Tired. Patient is set up in a chair. Discussed with Dr. Lovelace, doubt infection. Empirically antibiotic. Told to use incentive spirometry. Nuclear stress test tomorrow to rule out underlying ischemia. Prior history of CAD with stent. Note patient's underlying significant emphysema, recent lung surgery and history of lung cancer. Oral intake good. No cough no chest pain Active Medications Acetaminophen (Acetaminophen Tab 325 Mg Tab) 650 mg PO Q4HR PRN PRN Reason: Fever and/ or Pain Last Admin: 09/14/21 15:58 Dose: 650 mg Hydrocodone Bitart/Acetaminophen (Hydrocodone/Apap 10-325mg 1 Each Tab) 1 - 2 each PO Q4H PRN PRN Reason: Pain Albuterol Sulfate (Albuterol Nebulized 2.5 Mg/3 Ml) 2.5 mg INHALATION RT-Q2H PRN PRN Reason: Shortness Of Breath Or Wheezing Albuterol/Ipratropium (Ipratropium-Albuterol 3 Ml Neb) 3 ml INHALATION RT-Q4H PRN PRN Reason: shortness of breath Alprazolam (Alprazolam 0.5 Mg Tab) 0.5 mg PO TID PRN PRN Reason: Anxiety Last Admin: 09/15/21 01:32 Dose: 0.5 mg Aminophylline (Aminophylline 500 Mg/20 Ml Vial) 100 mg IV ONCE PRN PRN Reason: Patient Response Stop: 09/16/21 12:42 Amiodarone HCl (Amiodarone 200 Mg Tab) 400 mg PO DAILY [facility] Last Admin: 09/15/21 08:11 Dose: 400 mg Amlodipine Besylate (Amlodipine 5 Mg Tab) 5 mg PO DAILY [facility] Last Admin: 09/15/21 08:10 Dose: 5 mg Aspirin (Aspirin 81 Mg) 81 mg PO DAILY [facility] Last Admin: 09/15/21 08:11 Dose: 81 mg Atorvastatin Calcium (Atorvastatin 20 Mg Tab) 20 mg PO HS [facility] Last Admin: 09/14/21 21:52 Dose: 20 mg Budesonide/Formoterol Fumarate (Symbicort 80-4.5 Mcg Inhaler) 2 puff INHALATION RT-BID [facility] Last Admin: 09/15/21 08:37 Dose: 2 puff Caffeine Citrate (Caffeine Citrate 60 Mg/3 Ml Vial) 60 mg IV ONCE PRN PRN Reason: Patient Response Stop: 09/16/21 23:00 Carvedilol (Carvedilol 3.125 Mg Tab) 3.125 mg PO BID-W/MEALS [facility] Last Admin: 09/15/21 16:43 Dose: 3.125 mg Clopidogrel Bisulfate (Clopidogrel 75 Mg Tab) 75 mg PO DAILY [facility] Last Admin: 09/15/21 08:11 Dose: 75 mg Duloxetine HCl (Duloxetine Hcl 30 Mg Capsule.Dr) 30 mg PO BID [facility] Last Admin: 09/15/21 08:10 Dose: 30 mg Furosemide (Furosemide 40 Mg Tab) 40 mg PO DAILY [facility] Last Admin: 09/15/21 11:38 Dose: 40 mg Ceftriaxone Sodium 2 gm/ (Sodium Chloride) 50 mls @ 100 mls/hr IVPB Q24HR [facility]; Protocol Stop: 09/18/21 09:29 Last Admin: 09/15/21 08:01 Dose: 100 mls/hr Azithromycin 500 mg/ Sodium (Chloride) 250 mls @ 250 mls/hr IVPB DAILY [facility]; Protocol Stop: 09/18/21 09:01 Last Admin: 09/15/21 09:31 Dose: 250 mls/hr Isosorbide Mononitrate (Isosorbide Mononitrate Er 30 Mg Tab.Er.24h) 30 mg PO DAILY [facility] Last Admin: 09/15/21 08:10 Dose: 30 mg Lisinopril (Lisinopril 20 Mg Tab) 20 mg PO DAILY [facility] Last Admin: 09/15/21 08:10 Dose: 20 mg Methylprednisolone Sodium Succinate (Methylprednisolone Sod Succi 125 Mg/2 Ml Vial) 60 mg IV Q12HR [facility] Stop: 09/15/21 21:01 Last Admin: 09/15/21 08:16 Dose: 60 mg Miscellaneous Information (Pneumonia Protocol Utilized 1 Each Misc) 1 each PO ONCE PRN PRN Reason: Per Protocol Montelukast Sodium (Montelukast 10 Mg Tab) 10 mg PO BID [facility] Last Admin: 09/15/21 08:10 Dose: 10 mg Pantoprazole Sodium (Pantoprazole 40 Mg Tablet) 40 mg PO BID [facility] Last Admin: 09/15/21 08:10 Dose: 40 mg Primidone (Primidone 50 Mg Tab) 150 mg PO TID [facility] Last Admin: 09/15/21 16:43 Dose: 150 mg Regadenoson (Regadenoson 0.4 Mg/5 Ml Syringe) 0.4 mg IV ONCE PRN PRN Reason: Per Protocol Spironolactone (Spironolactone 25 Mg Tab) 25 mg PO DAILY [facility] Last Admin: 09/15/21 08:10 Dose: 25 mg On examination: VITAL SIGNS: [98.5, 68, 16, 150/78, 98% on 3 L] GENERAL APPEARANCE: BMI 29.4, declining bed, awake, tired. HEENT: Normal external appearance of nose and ear. Oral cavity normal EYES: Pupils equal. Conjunctiva normal. NECK: JVD not raised. Mass not palpable. RESPIRATORY: Respiratory effort increased. Lungs decreased breath sounds CARDIOVASCULAR: First and second sounds normal. No edema. ABDOMEN: Soft. Liver and spleen not palpable. No tenderness. No mass palpable. PSYCHIATRY: Alert and oriented x3. Mood and affect normal. INVESTIGATIONS, reviewed in the clinical context: White count 5.3 hemoglobin 10.2 platelets 280 potassium 3.7 BUN 12 creatinine 1.1 pro-calcitonin 0.12 COVID 19: Not detected 2-D echocardiogram: EF 60% CT chest angiogram for PE: Negative for PE. Emphysema. Possibly pulmonary fib rosis. Left pleural effusion. Mediastinal adenopathy. Assessment and plan: -Shortness of breath, multifactorial including advanced emphysema, pleural fluid that could be blood from recent surgery, left lower lobe lobectomy on 08/11/2021 -Acute COPD exacerbation in a previous smoker: Slow to respond IV Solu-Medrol 60 mg every 12. DuoNeb 4 times a day. Add Perforomist, nebulized Pulmicort -Lung cancer stage III with left lower lobe lobectomy on 08/11/2021. Being followed by Dr. Mcleod from oncology. -Left pleural effusion, could be malignant versus element of hemothorax from recent surgery Hold off any thoracentesis at the present time is discussed with Dr. Lovelace. -CAD with a prior history of stent Coreg, Plavix, aspirin, -Essential hypertension Coreg -GERD Protonix 40 mg twice a day -Chronic hypoxic respiratory failure from COPD Oxygen -Anxiety not otherwise specified Cymbalta 30 mg twice a day Patient told to sit up in a chair. Incentive spirometry. Add Perforomist) nebulized Pulmicort. IV Solu-Medrol. DuoNeb. Consider cutting back on amiodarone giving possible pulmonary fibrosis reported on computed tomography scan. Pending nuclear stress test tomorrow.
[2021-09-15] MEDS: ATORVASTATIN 20 MG TAB PO SCH (20:17)
[2021-09-15] MEDS: BUDESONIDE 1 MG/2 ML NEBU INHALATION SCH (20:28)
[2021-09-15] MEDS: IPRATROPIUM-ALBUTEROL 3 ML NEB INHALATION SCH (20:28)
[2021-09-15] MEDS: FORMOTEROL FUMARATE 20 MCG/2 ML NEBU INHALATION SCH (20:28)
[2021-09-16] MEDS ORDERED: CAFFEINE CITRATE 60 MG/3 ML VIAL IV PRN (07:00)
[2021-09-16] MEDS ORDERED: REGADENOSON 0.4 MG/5 ML SYRINGE IV PRN (07:00)
[2021-09-16] MEDS ORDERED: AMINOPHYLLINE 500 MG/20 ML VIAL IV PRN (07:00)
[2021-09-16] MEDS: BUDESONIDE 1 MG/2 ML NEBU INHALATION SCH ×2 (07:51→19:50)
[2021-09-16] MEDS: IPRATROPIUM-ALBUTEROL 3 ML NEB INHALATION SCH ×4 (07:51→19:50)
[2021-09-16] MEDS: FORMOTEROL FUMARATE 20 MCG/2 ML NEBU INHALATION SCH ×2 (07:51→19:50)
[2021-09-16] MEDS: carvediloL 3.125 MG TAB PO SCH ×2 (08:48→16:48)
[2021-09-16] MEDS: AZITHROMYCIN 500 MG in SODIUM CHLORIDE 0.9% 250 ML IVPB SCH (09:30)
[2021-09-16] MEDS: DULoxetine HCL 30 MG CAPSULE.DR PO SCH ×2 (10:24→21:55)
[2021-09-16] MEDS: ASPIRIN 81 MG PO SCH (10:24)
[2021-09-16] MEDS: PANTOPRAZOLE 40 MG TABLET PO SCH ×2 (10:25→21:55)
[2021-09-16] MEDS: ISOSORBIDE MONONITRATE ER 30 MG TAB.ER.24H PO SCH (10:25)
[2021-09-16] MEDS: amLODIPine 5 MG TAB PO SCH (10:26)
[2021-09-16] MEDS: CLOPIDOGREL 75 MG TAB PO SCH (10:26)
[2021-09-16] MEDS: MONTELUKAST 10 MG TAB PO SCH ×2 (10:26→21:55)
[2021-09-16] MEDS: lisinopriL 20 MG TAB PO SCH (10:27)
[2021-09-16] MEDS: AMIODARONE 200 MG TAB PO SCH (10:27)
[2021-09-16] MEDS: FUROSEMIDE 40 MG TAB PO SCH (10:27)
[2021-09-16] MEDS: PRIMIDONE 50 MG TAB PO SCH ×3 (10:27→21:55)
[2021-09-16] MEDS: SPIRONOLACTONE 25 MG TAB PO SCH (10:28)
--- NOTE | 2021-09-16 11:52 | P.PN ---
Subjective Progress Note Date: 09/16/21 Principal diagnosis: Shortness of breath 71-year-old female patient with history of advanced COPD on home oxygen, history of lung cancer with recent left lower lobectomy a little over 1 month ago done at [facility] by Dr. Azul, history of hypertension, CAD with previous stenting, anxiety, nicotine dependence, currently in remission, who presented to the emergency department on 09/14/2021 with complaints of progressive dyspnea over the last 3 days. Patient denied any fever or chills, does report a slight cough, nonproductive. Denies any sick contacts. No nausea vomiting or diarrhea. No abdominal pain. Chest x-ray in the emergency department showed bilateral lower lobe infiltrate with small left pleural effusion. According to the patient, left lower lobe lung mass was discovered on routine screening CT scan of the chest done by her PCP and was a little over 5 cm in size. Patient had a thoracotomy with left lower lobectemy on 08/11/2021. Her surgeon told her that her lymph nodes were positive, and patient's cancer diagnosis was stage III at diagnosis. Patient was also seen by Dr. Mcleod in consultation for new diagnosis of lung cancer. Lab work showed a white count of 5.9, hemoglobin of 11.0, coagulation profile was within normal limits, renal profile and electrolytes were unremarkable, lactic acid is 1.0. ProBNP was 1750, troponin was less than 0.012. Patient is resting comfortably on a gurney in emergency department, she is satting 96% on 2 L, she is afebrile. He has been started on empiric antibiotics, breathing treatments, COVID-19 PCR is pending, and of note patient is not vaccinated against COVID-19. No history of known COVID 19 positive contacts, and no previous COVID-19 infection On 09/15/2021 patient seen in follow-up on medical surgical floor. She is awake and alert, in no acute distress. She has dyspnea on exertion, but appears to be in no acute distress at rest, she is on 3 L of oxygen pulse ox is 98%, she's be en afebrile while in the hospital, she remains on empiric antibiotics with azithromycin and Rocephin. CTA chest has been completed showing no evidence of pulmonary embolism, emphysema and pulmonary interstitial infiltrates, left pleural effusion, mediastinal adenopathy, no suspicious pulmonary mass, and evidence of pulmonary hypertension. Echocardiogram has been completed showing normal EF of 60%, mild MR, mild aortic regurg, no pericardial effusion. today's labs have been reviewed, white blood cell count remains within normal limits at 5.31, hemoglobin today is 10.2, electrolytes and renal profile are unremarkable, pro-calcitonin level came back non-elevated at 0.12, COVID-19 PCR was negative. Cardiology is on the case, and patient is scheduled to undergo a stress test today. On 09/16/2021 patient seen in follow-up on medical surgical floor. Patient is awake and alert, she is sitting up in the recliner, currently on room air, earlier today she was at 93% on 3 L. Breathing comfortably, denies any worsening dyspnea or cough, no chest discomfort. Afebrile, hemodynamically stable. CT chest without contrast showed parenchymal bands, reticulations, intraseptal pleural linings with bilateral diffuse areas of groundglass opacity. Patient remains on empiric antibiotics with azithromycin and Rocephin, remains on breathing treatments, she was started on diuretics by cardiology service. Currently on 2 L of oxygen pulse ox is 96%. Today's labs have been reviewed, pro-calcitonin level was low at 0.12. No significant cough or phlegm production. Blood cultures have shown no growth. No complaints of chest discomfort. Tolerating ambulation in the room. Left-sided pleural effusion was quite small on the CT scan of the chest. No plans for thoracentesis. Objective - Vital Signs Vital signs: Vital Signs Temp 98.0 F 09/16/21 07:21 Pulse 67 09/16/21 08:24 Resp 17 09/16/21 08:24 BP 97/73 09/16/21 07:21 Pulse Ox 96 09/16/21 07:52 FiO2 Intake & Output 09/15/21 09/16/21 09/16/21 18:59 06:59 18:59 Intake Total 1380 Balance 1380 Intake: Intake, IV Titration 300 Amount Azithromycin 500 mg In 250 Sodium Chloride 0.9% 250 ml @ 250 mls/hr IVPB DAILY [facility] Rx#:[id number] cefTRIAXone 2 gm In 50 Sodium Chloride 0.9% 50 ml @ 100 mls/hr IVPB Q24HR [facility] Rx#:[id number] Oral 1080 Other: Voiding Method Toilet Toilet # Voids 3 2 - Exam GENERAL EXAM: Alert, very pleasant, 71-year-old white female, resting on the gurney in the emergency department on 3 L of oxygen and a pulse ox of 96% comfortable in no apparent distress. HEAD: Normocephalic/atraumatic. EYES: Normal reaction of pupils, equal size. Conjunctiva pink, sclera white. NOSE: Clear with pink turbinates. THROAT: No erythema or exudates. NECK: No masses, no JVD, no thyroid enlargement, no adenopathy. CHEST: No chest wall deformity. Symmetrical expansion. Left lateral chest oblique thoracotomy incision, clean dry and intact LUNGS: Diminished breath sounds at the left base, coarse crackles at the right base posteriorly CVS: Regular rate and rhythm, normal S1 and S2, no gallops, no murmurs, no rubs ABDOMEN: Soft, nontender. No hepatosplenomegaly, normal bowel sounds, no guarding or rigidity. EXTREMITIES: No clubbing, no edema, no cyanosis, 2+ pulses and upper and lower extremities. MUSCULOSKELETAL: Muscle strength and tone normal. SPINE: No scoliosis or deformity SKIN: No rashes CENTRAL NERVOUS SYSTEM: Alert and oriented -3. No focal deficits, tone is normal in all 4 extremities. PSYCHIATRIC: Alert and oriented -3. Appropriate affect. Intact judgment and insight. - Labs CBC & Chem 7: 09/15/21 06:49 09/15/21 06:49 Labs: Microbiology - Last 24 Hours (Table) 09/14/21 15:05 Blood Culture - Preliminary Blood No Growth after 24 hours 09/14/21 14:50 Blood Culture - Preliminary Blood No Growth after 24 hours Assessment and Plan Plan: Assessment: #1. Acute dyspnea, related to postoperative pleural effusion, possibly acute CHF with unknown EF. Possibility of pneumonia seems to be less likely although not completely excluded #2. Acute exacerbation of COPD #3. Recent thoracotomy with left lower lobectomy on 08/11/2021 at [facility] for a new diagnosis of lung cancer. Lymph nodes were positive, and the diagnosis of lung cancer was stage III at diagnosis. Patient follows with Dr. Nolen from medical oncology #4. History of COPD, advanced, on home oxygen #5. History of smoking, currently in remission #6. History of CAD with previous PCI to the LAD in March 2021 #7. Hypertension #8. Essential tremors #9. History of anxiety #10. Paroxysmal atrial fibrillation, on amiodarone but not on any chronic anticoagulation Plan: Continue current medical treatment Clinically patient is improving, breathing easier, No plans for thoracentesis, Increase activity as tolerated From pulmonary perspective patient could be considered for discharge home today or tomorrow Cardiology recommendations I have personally seen and examined the patient, performed the documentation and the assessment and plan as written. I have personally seen and examined the patient and reviewed the documentation. I performed a joint evaluation with the nurse practitioner in this evaluation was done more than 20 minutes. I fully agree with the documentation above and the plan of care.. The patient is stable. The patient is less short of breath compared to yesterday. Responding to the breathing treatment and steroids. The pleural effusion is small. I do not see any need for amiodarone treatment and this will be discontinued. The patient's cardiac rhythm is sinus. Time with Patient: Less than 30
--- NOTE | 2021-09-16 12:15 | P.PN ---
Subjective This is a pleasant 71-year-old female past medical history significant for lung cancer status post left lower lobe lobectomy in 08/11/2021 at [facility], paroxysmal atrial fibrillation after surgery started on amiodarone, coronary a rtery disease status post PCI of the LAD prior to surgery in 04/2021, COPD, hypertension, dyslipidemia, former smoker. She follows with Dr. Kathleen. We have been asked to see in consultation for elevated BNP. Patient presented to the ER on 09/14 with complaints of worsening shortness of breath and dyspnea on exertion. She states she was discharged from [facility] after surgery about 1-1.5 weeks ago, she was doing well at home and for the past few days has been having worsening shortness of breath mostly with activity. She states when she is a rest/sitting or lying down she has improvement in her breathing. She states at home she could barely walk to the bathroom without feeling short of breath. She denies any orthopnea, PND, lower extremity edema. She states that she underwent cardiac catheterization secondary to her cardiac workup that was abnormal prior to surgery. She underwent PCI with Dr. Kathleen prior to surgery in 03/2021. At that time, she did not have any symptoms of shortness of breath or chest pain prior to her cath. She was started on amiodarone after surgery secondary to atrial fibrillation post operatively. She states when she was told that she was in atrial fibrillation she was asymptomatic. 09/16/2021 Patient seen and examined at bedside, no acute distress. She continues to have dyspnea with activity. She denies any chest pain. Vital signs are stable. Echocardiogram revealed EF 60%, mild mitral regurgitation, mild aortic regurgitation. No pericardial effusion. RECORDS: 04/30/2021- right and left heart cath was performed at [facility] -Successful balloon angioplasty and stent placement of the mid LAD -Coronary artery disease with nondominant circumflex with minor diffuse disease, dominant RCA with mild disease proximally and a 60% percent eccentric obstruction in the mid vessel, no significant left main disease -EF 6065 percent -No evidence of aortic insufficiency, aortic dissection or aneurysmal dilatation of the ascending aorta -Mild pulmonary artery hypertension: PA 44 systolic, with diastolic of 16, and mean 26mmHg with pulmonary capillary wedge of 8mmHg -LVEDP 12mmHg PHYSICAL EXAMINATION Vitals reviewed CONSTITUTIONAL: No apparent distress. HEENT: Neck Supple. No JVD. CHEST EXAMINATION: Lungs are diminished bilateral bases to auscultation. No chest wall tenderness is noted on palpation or with deep breathing. HEART EXAMINATION: Regular rate and rhythm. S1, S2 heard. No murmurs, gallops or rub. ABDOMEN: Soft, nontender. Positive bowel sounds. EXTREMITIES: 2+ peripheral pulses, no lower extremity edema and no calf tenderness. NEUROLOGIC EXAMINATION: Patient is awake, alert and oriented x3. ASSESSMENT Shortness of breath, dyspnea on exertion, could be multifactorial with recent left lower lobectomy. However, patient with recent diagnosis of CAD and stent to the LAD prior to surgery, possible pneumonia however patient without any signs of infection Elevated BNP- patient does not appear to be in acute heart failure exacerbation on exam Lung cancer Recent left lower lobectomy on 08/11/2021 at [facility] Coronary artery disease with PCI to LAD prior to surgery in 04/2021 Recent right heart catheterization on 04/2021 with LVEDP 12mmHg Diagnosis of paroxysmal atrial fibrillation post operatively after lobectomy started on amiodarone History of COPD Former tobacco use History of hypertension Dyslipidemia PLAN Plan for Lexiscan stress test today, however, patient refused and would not like test completed at this time. Echocardiogram reviewed with EF of 60%, no significant wall motion abnormalities. Troponins negative. Ok for no stress test today and ok to follow up outpatient with Dr. Kathleen. Patient doesn't endorse much improvement with Lasix. No signs of acute heart failure on exam. Recent right heart catheterization on 04/2021 with LVEDP 12mmHg. Continue dual antiplatelet therapy with aspirin and Plavix Continue amiodarone at this time Continue home statin, spironolactone, Coreg, imdur, lisinopril No further inpatient workup from cardiology perspective. Recommend close follow up with her primary tool room attendant Dr. Kathleen. We'll follow the patient has any. Please reconsult if needed. Nurse practitioner note has been reviewed by physician. Signing provider agrees with the documented findings, assessment, and plan of care. Objective - Vital Signs Vital signs: Vital Signs Temp 98.0 F 09/16/21 07:21 Pulse 77 09/16/21 11:53 Resp 16 09/16/21 11:53 BP 97/73 09/16/21 07:21 Pulse Ox 96 07/21/22 07:52 FiO2 Intake & Output 09/15/21 09/16/21 09/16/21 18:59 06:59 18:59 Intake Total 1380 Balance 1380 Intake: Intake, IV Titration 300 Amount Azithromycin 500 mg In 250 Sodium Chloride 0.9% 250 ml @ 250 mls/hr IVPB DAILY [facility] Rx#:[id number] cefTRIAXone 2 gm In 50 Sodium Chloride 0.9% 50 ml @ 100 mls/hr IVPB Q24HR [facility] Rx#:[id number] Oral 1080 Other: Voiding Method Toilet Toilet # Voids 3 2 - Labs CBC & Chem 7: 09/15/21 06:49 09/15/21 06:49 Labs: Microbiology - Last 24 Hours (Table) 09/14/21 15:05 Blood Culture - Preliminary Blood No Growth after 24 hours 09/14/21 14:50 Blood Culture - Preliminary Blood No Growth after 24 hours
[2021-09-16] MEDS: ALPRAZolam 0.5 MG TAB PO PRN (15:47)
[2021-09-16] MEDS: ATORVASTATIN 20 MG TAB PO SCH (21:55)
[2021-09-17 03:35] VITALS: RESP 17
[2021-09-17] MEDS: FORMOTEROL FUMARATE 20 MCG/2 ML NEBU INHALATION SCH (07:31)
[2021-09-17] MEDS: IPRATROPIUM-ALBUTEROL 3 ML NEB INHALATION SCH ×2 (07:31→11:05)
[2021-09-17] MEDS: BUDESONIDE 1 MG/2 ML NEBU INHALATION SCH (07:31)
[2021-09-17 07:51] VITALS: BP 107/54; PULSE 63; TEMP 98
[2021-09-17] MEDS: SPIRONOLACTONE 25 MG TAB PO SCH (08:11)
[2021-09-17] MEDS: ASPIRIN 81 MG PO SCH (08:11)
[2021-09-17] MEDS: ISOSORBIDE MONONITRATE ER 30 MG TAB.ER.24H PO SCH (08:11)
[2021-09-17] MEDS: MONTELUKAST 10 MG TAB PO SCH (08:11)
[2021-09-17] MEDS: amLODIPine 5 MG TAB PO SCH (08:11)
[2021-09-17] MEDS: PRIMIDONE 50 MG TAB PO SCH (08:11)
[2021-09-17] MEDS: PANTOPRAZOLE 40 MG TABLET PO SCH (08:12)
[2021-09-17] MEDS: CLOPIDOGREL 75 MG TAB PO SCH (08:12)
[2021-09-17] MEDS: carvediloL 3.125 MG TAB PO SCH (08:12)
[2021-09-17] MEDS: lisinopriL 20 MG TAB PO SCH (08:12)
[2021-09-17] MEDS: DULoxetine HCL 30 MG CAPSULE.DR PO SCH (08:12)
[2021-09-17] MEDS ORDERED: FUROSEMIDE 20 MG TAB PO SCH (09:00)
[2021-09-17] MEDS ORDERED: AZITHROMYCIN 250 MG TAB PO SCH (09:00)
[2021-09-17] MEDS: ALPRAZolam 0.5 MG TAB PO PRN (11:45)
--- NOTE | 2021-09-17 13:27 | P.PN ---
Subjective Progress Note Date: 09/17/21 71-year-old female patient with history of advanced COPD on home oxygen, history of lung cancer with recent left lower lobectomy a little over 1 month ago done at [facility] by Dr. Azul, history of hypertension, CAD with previous stenting, anxiety, nicotine dependence, currently in remission, who presented to the emergency department on 09/14/2021 with complaints of progressive dyspnea over the last 3 days. Patient denied any fever or chills, does report a slight cough, nonproductive. Denies any sick contacts. No nausea vomiting or diarrhea. No abdominal pain. Chest x-ray in the emergency department showed bilateral lower lobe infiltrate with small left pleural effusion. According to the patient, left lower lobe lung mass was discovered on routine screening CT scan of the chest done by her PCP and was a little over 5 cm in size. Patient had a thoracotomy with left lower lobectemy on 08/11/2021. Her surgeon told her that her lymph nodes were positive, and patient's cancer diagnosis was stage III at diagnosis. Patient was also seen by Dr. Mcleod in consultation for new diagnosis of lung cancer. Lab work showed a white count of 5.9, hemoglobin of 11.0, coagulation profile was within normal limits, renal profile and electrolytes were unremarkable, lactic acid is 1.0. ProBNP was 1750, troponin was less than 0.012. Patient is resting comfortably on a gurney in emergency department, she is satting 96% on 2 L, she is afebrile. He has been started on empiric antibiotics, breathing treatments, COVID-19 PCR is pending, and of note patient is not vaccinated against COVID-19. No history of known COVID 19 positive contacts, and no previous COVID-19 infection On 09/15/2021 patient seen in follow-up on medical surgical floor. She is awake and alert, in no acute distress. She has dyspnea on exertion, but appears to be in no acute distress at rest, she is on 3 L of oxygen pulse ox is 98%, she's been afebrile while in the hospital, she remains on empiric antibiotics with azithromycin and Rocephin. CTA chest has been completed showing no evidence of pulmonary embolism, emphysema and pulmonary interstitial infiltrates, left pleural effusion, mediastinal adenopathy, no suspicious pulmonary mass, and evidence of pulmonary hypertension. Echocardiogram has been completed showing normal EF of 60%, mild MR, mild aortic regurg, no pericardial effusion. today's labs have been reviewed, white blood cell count remains within normal limits at 5.31, hemoglobin today is 10.2, electrolytes and renal profile are unremarkable, pro-calcitonin level came back non-elevated at 0.12, COVID-19 PCR was negative. Cardiology is on the case, and patient is scheduled to undergo a stress test today. On 09/16/2021 patient seen in follow-up on medical surgical floor. Patient is awake and alert, she is sitting up in the recliner, currently on room air, earlier today she was at 93% on 3 L. Breathing comfortably, denies any worsening dyspnea or cough, no chest discomfort. Afebrile, hemodynamically stable. CT chest without contrast showed parenchymal bands, reticulations, intraseptal pleural linings with bilateral diffuse areas of groundglass opacity. Patient remains on empiric antibiotics with azithromycin and Rocephin, remains on breathing treatments, she was started on diuretics by cardiology service. Currently on 2 L of oxygen pulse ox is 96%. Today's labs have been reviewed, pro-calcitonin level was low at 0.12. No significant cough or phlegm production. Blood cultures have shown no growth. No complaints of chest discomfort. Tolerating ambulation in the room. Left-sided pleural effusion was quite small on the CT scan of the chest. No plans for thoracentesis. Patient is seen today 09/17/2021 in follow-up on the regular medical floor. She is currently up ambulating in her room. Awake and alert in no acute distress. Maintaining O2 saturations in the 90s on room air. Afebrile. Hemodynamically stable. Blood cultures revealed no growth. She is continued on DuoNeb inhalations and antibiotics in the form of ceftriaxone and azithromycin. She is hoping to go home today. Objective - Vital Signs Vital signs: Vital Signs Temp 98.0 F 09/17/21 07:50 Pulse 63 09/17/21 08:13 Resp 17 09/17/21 08:13 BP 107/54 09/17/21 07:50 Pulse Ox 94 L 09/17/21 07:50 FiO2 Intake & Output 09/16/21 09/17/21 09/17/21 18:59 06:59 18:59 Other: Voiding Method Toilet Toilet Toilet # Voids 3 2 - Exam GENERAL EXAM: Alert, pleasant, 71-year-old female, up ambulating in the room, on room air, comfortable in no apparent distress. HEAD: Normocephalic/atraumatic. EYES: Normal reaction of pupils, equal size. Conjunctiva pink, sclera white. NOSE: Clear with pink turbinates. THROAT: No erythema or exudates. NECK: No masses, no JVD, no thyroid enlargement, no adenopathy. CHEST: No chest wall deformity. Symmetrical expansion. Left lateral chest oblique thoracotomy incision, clean dry and intact LUNGS: Diminished breath sounds at the left base, coarse crackles at the right base posteriorly CVS: Regular rate and rhythm, normal S1 and S2, no gallops, no murmurs, no rubs ABDOMEN: Soft, nontender. No hepatosplenomegaly, normal bowel sounds, no guarding or rigidity. EXTREMITIES: No clubbing, no edema, no cyanosis, 2+ pulses and upper and lower extremities. MUSCULOSKELETAL: Muscle strength and tone normal. SPINE: No scoliosis or deformity SKIN: No rashes CENTRAL NERVOUS SYSTEM: No focal deficits, tone is normal in all 4 extremities. PSYCHIATRIC: Alert and oriented -3. Appropriate affect. Intact judgment and insight. - Labs CBC & Chem 7: 09/15/21 06:49 09/15/21 06:49 Labs: Microbiology - Last 24 Hours (Table) 09/14/21 15:05 Blood Culture - Preliminary Blood No Growth after 48 hours 09/14/21 14:50 Blood Culture - Preliminary Blood No Growth after 48 hours Assessment and Plan Assessment: Acute dyspnea, related to postoperative pleural effusion, possibly acute di astolic CHF with preserved left ventricular systolic function ejection fraction 60%. Possibility of pneumonia seems to be less likely , pro-calcitonin 0.12. Treated with ceftriaxone and azithromycin empirically. Acute exacerbation of COPD Recent thoracotomy with left lower lobectomy on 08/11/2021 at [facility] for a new diagnosis of lung cancer. Lymph nodes were positive, and the diagnosis of lung cancer was stage III at diagnosis. Patient follows with Dr. Nolen from medical oncology History of COPD, advanced, on home oxygen History of smoking, currently in remission History of CAD with previous PCI to the LAD in March 2021 Hypertension Essential tremors History of anxiety Paroxysmal atrial fibrillation, on amiodarone but not on any chronic anticoagulation Plan: The patient was seen and evaluated Cleared for discharge from the pulmonary standpoint Follow-up in our office in 1-2 weeks' She prefers to stay in town versus going to [place] for pulmonary services I have personally seen and examined the patient, performed the documentation and the assessment and plan as written. I have personally seen and examined the patient and reviewed the documentation. I performed a joint evaluation with the nurse practitioner in this evaluation was done more than 20 minutes. I fully agree with the documentation above and the plan of care.
== END 2021-09-17 11:52 | disposition home health service (06) | DRG 193 ==
LOC: EC 12:28 → 4SSUR 14:42
PROVIDERS: ADMIT Family Medicine; ATTEND Family Medicine
DX: J18.9 Pneumonia, unspecified organism (principal); I50.31 Acute diastolic (congestive) heart failure; C34.32 Malignant neoplasm of lower lobe, left bronchus or lung; C77.1 Secondary and unspecified malignant neoplasm of intrathoracic lymph nodes; J90 Pleural effusion, not elsewhere classified; J96.11 Chronic respiratory failure with hypoxia; J43.9 Emphysema, unspecified; I73.9 Peripheral vascular disease, unspecified; I48.0 Paroxysmal atrial fibrillation; Z20.822 Contact with and (suspected) exposure to COVID-19; Z28.310 Unvaccinated for COVID-19; K21.9 Gastro-esophageal reflux disease without esophagitis; F17.210 Nicotine dependence, cigarettes, uncomplicated; E78.5 Hyperlipidemia, unspecified; F41.9 Anxiety disorder, unspecified; G25.0 Essential tremor; I10 Essential (primary) hypertension; I25.10 Atherosclerotic heart disease of native coronary artery without angina pectoris; I27.20 Pulmonary hypertension, unspecified; Z79.02 Long term (current) use of antithrombotics/antiplatelets; Z79.51 Long term (current) use of inhaled steroids; Z79.82 Long term (current) use of aspirin; Z79.899 Other long term (current) drug therapy; Z82.49 Family history of ischemic heart disease and other diseases of the circulatory system; Z90.2 Acquired absence of lung [part of]; Z95.5 Presence of coronary angioplasty implant and graft; Z99.81 Dependence on supplemental oxygen; Z88.2 Allergy status to sulfonamides
CPT/HCPCS: 36415; 71046; 71275; 80053; 83605; 83735; 83880; 84145; 84484; 85025; 85610; 85730; 87040; 87635; 93005; 93306; 94640; 94760; 96365; 96366; 96367; 99285

== ENCOUNTER → 2021-12-13 | Outpatient (CLI) | payer MEDICARE ==
--- NOTE | 2021-12-13 14:05 | CT ---
EXAMINATION TYPE: CT chest w con DATE OF EXAM: 12/13/2021 COMPARISON: CT chest September 14, 2021 HISTORY: f/u lung ca CT DLP: 439 mGycm. Automated Exposure Control for Dose Reduction was Utilized. TECHNIQUE: CT scan of the thorax is performed following with IV Contrast, patient injected with 70cc mL of Isovue 300. FINDINGS: LUNGS: Peripheral parenchymal reticulation and fibrotic changes bilaterally are redemonstrated. Small blebs in the periphery of the upper lungs again seen. Stable small to tiny left pleural fluid collec tion or effusion. No concerning masses. Surgical changes left hilar region redemonstrated extending a nteriorly. Stable left-sided volume loss. MEDIASTINUM: There are no new greater than 1 cm hilar or mediastinal lymph nodes. Prominent but sub centimeter lymph nodes in the mediastinum axial image 14 are stable. No cardiomegaly or pericardial e ffusion is seen. Coronary artery calcification is redemonstrated. Calcification at level of the mitr al valve is redemonstrated. OTHER: Cholecystectomy clips are again seen. Nonspecific bilateral adrenal masses larger in size on t he left measuring 2.1 x 2.0 cm outside field of view on prior CT. Exophytic thin-walled cyst posterio rly upper pole left kidney axial image 49 is noted. Cortical thinning both kidneys is noted. IMPRESSION: Mild to moderate bilateral peripheral fibrotic changes. Stable left-sided posttreatment c hanges and small to tiny left pleural fluid collection. No new mass or adenopathy to suggest neoplast ic recurrence. There are however nonspecific bilateral small adrenal masses. Correlation with older o utside CT or PET/CT is advised to exclude neoplastic involvement at this level. Otherwise consider ad renal protocol CT or MRI or PET/CT follow-up to further evaluate.
== END | disposition home or self-care (01) ==
LOC: RADCTMAIN 10:57
PROVIDERS: ATTEND Internal Medicine Hematology & Oncology
DX: Z03.89 Encounter for observation for other suspected diseases and conditions ruled out (principal); C34.32 Malignant neoplasm of lower lobe, left bronchus or lung
CPT/HCPCS: 82565; 84520; 71260; 36415; Q9967